=== PATIENT | female | born 1960 | race Caucasian/White ===

== ENCOUNTER 2020-10-08 14:10 | Emergency (ER) | payer MEDICARE, SELFPAY ==
[2020-10-08 14:11] VITALS: BP 155/96; PULSE 72; RESP 18; TEMP 36.4; O2SAT 99; BMI 38.0
--- NOTE | 2020-10-08 14:25 | DCINST.ED_ITS ---
ED Disposition - Plan for ED Patient: Instructions: Med Refill Prescriptions: Hydrochlorothiazide [Hctz] 12.5 mg PO DAILY #30 tab Prescription Printed Losartan Potassium 100 mg PO DAILY #30 tab Prescription Printed Amlodipine Besylate [Norvasc] 5 mg PO DAILY #30 tab Prescription Printed Referrals: [facility] Doctor,Out of [Primary Care Provider] - Susana Ford MD [STAFF PHYSICIAN] -
--- NOTE | 2020-10-08 14:31 | ED.VISSUMM ---
- ER Visit Summary Date of Service: 10/08/20 Chief Complaint: Ran out of medications History of Present Illness: The patient is a 60 F presenting stating that she ran out of her blood pressure medications 4 days ago. She states she is in the process of changing primary care physicians. She ran out of Norvasc, hydrochlorothiazide, and losartan. She states she ran out of her Lipitor approximately 5 months ago and does not want a refill. She denies chest pain or shortness of breath. Denies other complaints. Physical Examination: Vitals are stable. Blood pressure 155/96, patient is afebrile. Alert no acute distress. HEENT exam is unremarkable. Neck is supple. Lungs are clear and equal bilaterally. Heart is regular rate and rhythm. Extremities are unremarkable. Skin is warm and dry. No focal neurologic deficit. Remainder of exam is unremarkable. Emergency Department Course and Treatment: Patient is given prescription for Norvasc, hydrochlorothiazide, losartan. She states her daughter sees Dr. Ford and she will try to follow-up with her. Advised to return to ED if worsening complaints. Disposition: Discharge home Impression: Hypertension, medication refill This note was generated with adicate timeads dictation software. It may contain incorrect words, spelling, and punctuation that were not noted in review of the chart prior to signing ED Disposition - Plan for ED Patient: Instructions: Med Refill Prescriptions: Hydrochlorothiazide [Hctz] 12.5 mg PO DAILY #30 tab Prescription Printed Losartan Potassium 100 mg PO DAILY #30 tab Prescription Printed Amlodipine Besylate [Norvasc] 5 mg PO DAILY #30 tab Prescription Printed Referrals: Susana Ford MD [STAFF PHYSICIAN] - [facility] Doctor,Out of [Primary Care Provider] -
== END 2020-10-08 14:53 | disposition home or self-care (01) ==
LOC: ED 14:46
PROVIDERS: Emergency Provider Emergency Medicine
DX: Z76.0 Encounter for issue of repeat prescription (principal); I10 Essential (primary) hypertension; I25.2 Old myocardial infarction; I25.10 Atherosclerotic heart disease of native coronary artery without angina pectoris; E78.00 Pure hypercholesterolemia, unspecified; Z95.5 Presence of coronary angioplasty implant and graft; Z79.899 Other long term (current) drug therapy
CPT/HCPCS: 99282

== ENCOUNTER 2025-05-25 11:23 | Inpatient (IN) | payer MEDICARE, SELFPAY ==
[2025-05-25] VITALS (17 sets, daily range): BP systolic 112–186; BP diastolic 65–107; PULSE 59–129; RESP 16–26; TEMP 36.4–37.1; O2SAT 94–100; BMI 44.9; BMI 46.5
--- NOTE | 2025-05-25 11:56 | RAD_ITS ---
PROCEDURE: CHEST 1 VIEW (PORTABLE) 05/25/2025 REASON FOR EXAM: CAD TECHNIQUE: 2 frontal views of the chest. COMPARISON: None FINDINGS: Hardware: EKG leads overlie the chest Heart: The heart size is normal. Lungs: Lungs are underexpanded but there is no superimposed acute pulmonary process. Bones: The bones are unremarkable. Other: RAD/Chest 1 View (Portable) IMPRESSION: Underexpanded lungs without a superimposed acute pulmonary process Reading Location: [id number]
--- NOTE | 2025-05-25 11:56 | EKG12_ITS ---
Test Reason : NAUSEA Blood Pressure : */* mmHG Vent. Rate : 140 BPM Atrial Rate : 234 BPM P-R Int : 154 ms QRS Dur : 70 ms QT Int : 410 ms P-R-T Axes : 62 -24 44 degrees QTcB Int : 625 ms Critical Test Result: High HR , Ventricular tachycardia Poor data quality, interpretation may be adversely affected Undetermined rhythm Low voltage QRS Inferior infarct , age undetermined Anterolateral infarct , age undetermined Abnormal ECG Confirmed by WIN GOLDMAN, PAWEL ([id number]), senior editor STEPHANIE SANDOVAL ([id number]) on 05/26/2025 1:46:28 PM Referred By: Confirmed By: PAWEL WALDEN MD
--- NOTE | 2025-05-25 11:56 | CT_ITS ---
EXAM: CT Head Without Intravenous Contrast CLINICAL INDICATION: ALTERED LEVEL OF CONSCIOUSNESS TECHNIQUE: Axial computed tomography images of the head/brain without intravenous contrast. This CT exam was performed using one or more of the following dose reduction techniques: automated exposure control, adjustment of the mA and/or kV according to patient size, and/or use of iterative reconstruction technique. COMPARISON: No relevant prior studies available. FINDINGS: BRAIN AND EXTRA-AXIAL SPACES: The cerebral and cerebellar sulci are mildly prominent consistent with mild brain atrophy. No acute intracranial hemorrhage, midline shift or mass effect. If symptoms persist, further evaluation with MRI is recommended. Mild areas of decreased attenuation in the deep cerebral white matter are consistent with mild small vessel ischemic/degenerative changes. BONES/JOINTS: Unremarkable. No acute fracture. SOFT TISSUES: Unremarkable. SINUSES: Unremarkable as visualized. No acute sinusitis. MASTOID AIR CELLS: Unremarkable as visualized. No mastoid effusion. CT/Brain/Head without Contrast IMPRESSION: 1. No acute intracranial hemorrhage, midline shift or mass effect. If symptoms persist, further evaluation with MRI is recommended. 2. Mild small vessel ischemic/degenerative changes. Reading Location: [facility]
--- NOTE | 2025-05-25 11:58 | EX.ED.DYSGE1 ---
HPI <Ryne Briscoe MD - Last Filed: 05/26/25 08:30> History of Present Illness Chief Complaint: Alt LOC Narrative Narrative: History and physical limited secondary to patient mental condition/altered mental status. Patient presents via EMS with reported confusion that been increasing over the last few months. According to EMS, her family reports that the patient has been noncompliant with her medications and refusing to go to appointments with physicians. She has had declining health over the last few months. She was on the floor and found on the ground for the last 8 hours. PFSH <Ryne Briscoe MD - Last Filed: 05/26/25 08:30> [facility] Medical History no medical history Home Medications ?Medication ?Instructions ?Recorded ?Last Taken ?Type amlodipine 5 mg tablet 5 mg PO DAILY 10/08/20 Unknown History amlodipine 5 mg tablet 5 mg PO DAILY #30 tabs 10/08/20 Unknown Rx gabapentin 100 mg capsule 200 mg PO TID 10/08/20 Unknown History hydrochlorothiazide 12.5 mg capsule 12.5 mg PO DAILY 10/08/20 Unknown History hydrochlorothiazide 25 mg tablet 12.5 mg (1/2 x 25 mg) PO DAILY #30 10/08/20 Unknown Rx tabs hydrocodone 7.5 mg-acetaminophen 1 tab PO Q4H PRN PRN Pain Score 10/08/20 Unknown History 325 mg tablet 6-10 losartan 100 mg tablet 100 mg PO DAILY 10/08/20 Unknown History losartan 100 mg tablet 100 mg PO DAILY #30 tabs 10/08/20 Unknown Rx meloxicam 15 mg tablet 15 mg PO DAILY 10/08/20 Unknown History metoprolol succinate 25 mg 25 mg PO BID 10/08/20 Unknown History tablet,extended release 24 hr omeprazole 20 mg capsule,delayed 20 mg PO DAILY 10/08/20 Unknown History release tizanidine 2 mg capsule 2 mg PO QHS 10/08/20 10/07/20 History venlafaxine 75 mg capsule,extended 75 mg PO 10/08/20 Unknown History release 24 hr Allergy/AdvReac Type Severity Reaction Status Date / Time morphine Allergy Other Verified 05/25/25 11:24 Sulfa (Sulfonamide Allergy Rash Verified 05/25/25 11:24 Antibiotics) Family History no significant family his Surgical History no surgical history Social History Smoking Status: Current every day smoker tobacco type: cigarettes ROS <Ryne Briscoe MD - Last Filed: 05/26/25 08:30> ROS ED Review of Systems ROS Unobtainable: due to mental status EXAM <Ryne Briscoe MD - Last Filed: 05/26/25 08:30> Physical Exam Narrative Exam Narrative: Afebrile. Vital signs noted. Awake, alert, appears mildly confused, repetitive. Cardiovascular examination reveals a regular tachycardia. Lungs are clear to auscultation bilaterally. Abdomen is soft, nontender, obese, with positive bowel sounds. No guarding or rebound. Moving all extremities. Const Vital Signs: 05/25/25 11:24 05/25/25 11:27 05/25/25 12:27 Temperature 97.6 F L 97.6 F L 97.6 F L Temperature Source Oral Oral Oral Pulse Rate 129 H 129 H 125 H Respiratory Rate 26 H 26 H 26 H Blood Pressure 149/97 H 149/97 H 180/91 H Blood Pressure Mean 114 114 120 Pulse Ox 100 100 100 Oxygen Delivery Method Room Air Room Air Room Air 05/25/25 13:00 05/25/25 14:00 05/25/25 15:00 Temperature 97.6 F L 97.6 F L 98.7 F Temperature Source Oral Oral Oral Pulse Rate 121 H 126 H 123 H Respiratory Rate 26 H 25 H 20 H Blood Pressure 186/106 H 145/65 H 134/107 H Blood Pressure Mean 132 91 116 Pulse Ox 100 100 100 Oxygen Delivery Method Room Air Room Air Room Air 05/25/25 16:00 05/25/25 16:51 05/25/25 17:00 Temperature 98.7 F 98.7 F Temperature Source Oral Pulse Rate 129 H 129 H 59 L Respiratory Rate 16 20 H Blood Pressure 124/101 H 124/101 H 157/92 H Blood Pressure Mean 108 108 113 Pulse Ox 100 100 100 Oxygen Delivery Method Room Air Room Air 05/25/25 17:00 05/25/25 18:00 05/25/25 19:00 Temperature 98.7 F 97.8 F 98.3 F Temperature Source Oral Oral Oral Pulse Rate 116 H 118 H 114 H Respiratory Rate 22 H 24 H 23 H Blood Pressure 165/92 H 165/92 H 160/91 H Blood Pressure Mean 116 116 114 Pulse Ox 97 97 98 Oxygen Delivery Method Room Air Room Air Room Air <Dr. Eduard Porter DO - Last Filed: 05/25/25 19:29> Physical Exam Const Vital Signs: 05/25/25 11:24 05/25/25 11:27 05/25/25 12:27 Temperature 97.6 F L 97.6 F L 97.6 F L Temperature Source Oral Oral Oral Pulse Rate 129 H 129 H 125 H Respiratory Rate 26 H 26 H 26 H Blood Pressure 149/97 H 149/97 H 180/91 H Blood Pressure Mean 114 114 120 Pulse Ox 100 100 100 Oxygen Delivery Method Room Air Room Air Room Air 05/25/25 13:00 05/25/25 14:00 05/25/25 15:00 Temperature 97.6 F L 97.6 F L 98.7 F Temperature Source Oral Oral Oral Pulse Rate 121 H 126 H 123 H Respiratory Rate 26 H 25 H 20 H Blood Pressure 186/106 H 145/65 H 134/107 H Blood Pressure Mean 132 91 116 Pulse Ox 100 100 100 Oxygen Delivery Method Room Air Room Air Room Air 05/25/25 16:00 05/25/25 16:51 05/25/25 17:00 Temperature 98.7 F 98.7 F Temperature Source Oral Pulse Rate 129 H 129 H 59 L Respiratory Rate 16 20 H Blood Pressure 124/101 H 124/101 H 157/92 H Blood Pressure Mean 108 108 113 Pulse Ox 100 100 100 Oxygen Delivery Method Room Air Room Air 05/25/25 17:00 05/25/25 18:00 05/25/25 19:00 Temperature 98.7 F 97.8 F 98.3 F Temperature Source Oral Oral Oral Pulse Rate 116 H 118 H 114 H Respiratory Rate 22 H 24 H 23 H Blood Pressure 165/92 H 165/92 H 160/91 H Blood Pressure Mean 116 116 114 Pulse Ox 97 97 98 Oxygen Delivery Method Room Air Room Air Room Air MDM <Ryne Briscoe MD - Last Filed: 05/26/25 08:30> [facility] MDM Narrative Medical decision making narrative: Differential diagnosis includes but not limited to rhabdomyolysis versus acute intoxication versus dehydration versus other electrolyte imbalance. EKG was obtained and interpreted by myself independently as sinus tachycardia at 140 bpm with prolonged QTc of 625 ms, QRS normal duration is 70 ms. I reviewed her laboratory work and she has a leukocytosis of 22.2, compared to previous, it was elevated as well in the 20s. Hemoglobin normal at 13.2, hematocrit 39.4, platelet count 448. Potassium low at 2.8 which was replaced intravenously. Anion gap elevated at 21 with BUN of 9 and creatinine 0.80, glucose elevated at 123, lactic acid elevated 8.9. Ammonia level is also elevated at 133 so I suspect a hepatic encephalopathy. She was administered lactulose 40 orally. Albumin is slightly low at 2.8. AST slightly elevated at 71 with total bili 5.99. Total CK1 68 so I doubt rhabdomyolysis. Urine for drugs of abuse is positive for cannabinoids with ethyl alcohol less than 10.1. Urinalysis negative for infection with 0-5 WBCs. Chest x-ray interpreted by myself independently shows no pneumonia or consolidation, no pneumothorax. I reviewed the radiology report of the CT of the brain which shows no evidence of acute hemorrhage. Given her lactic acidosis, and that she is triggering sepsis, blood cultures obtained. She will be given additional IV fluids. Given her mental status change, lactic acidosis, and possible sepsis of unknown source, she was administered Zosyn and vancomycin. I discussed patient with Dr. Ryne Houser. He requested CT of the abdomen and pelvis with IV contrast and an INR which are currently pending. INR returned and is elevated at 3.6 with PTT of 36.7. In review of the radiology report of the CT of the abdomen and pelvis she has a cirrhotic liver as well as ascites. I rediscussed patient with Dr. Houser who feels patient would be better served in a tertiary care facility that has hepatology. I discussed patient with her daughter, Gisselle Salazar, at as a current contact information in the EMR is incorrect. She would like the patient transferred to [facility] As a first choice. She states that the patient did not drink excessive alcohol. Patient will be discussed with the transfer line. Patient is in stable condition. Patient signed out to oncoming physician, Dr. Waddell to seek acceptance and transfer patient. Dr. Porter: Patient was signed out to me by day physician. At the time of signout, he had already spoke to [facility]. He states that the wait time was greater than 3 days therefore he reached out to [facility]. He was waiting for [facility] callback. I spoke with Dr. Rodriguez from [facility]. Recommend patient to be transported to [facility]. Will reach out to [facility]. Patient started to pull out multiple IVs therefore was placed in soft wrist restraints. I spoke with [facility], Dr. Bolden. She accepted admission however she states that it will be greater than 6 hours before likely bed will open. Recommended admission to our hospital until they are able to verify transfer. Will reach out to our hospitalist again. Spoke with Dr. Buckley. He accepted admission to PCU. On chart review, patient has not had a repeat potassium. Will order this as well as a magnesium. History & Record Review Discussion w/independent historian: EMS personnel, Patient and Family (RN reports that daughter states that patient became noncompliant, and has been laying in bed for the past few months.) Lab Data Attestation: I reviewed the patient's lab results. Labs: Laboratory Results - last 24 hr 05/25/25 05/25/25 05/25/25 11:30 11:45 12:00 WBC 22.2 H RBC 4.28 Hgb 13.2 Hct 39.4 MCV 92.1 MCH 30.8 MCHC 33.5 RDW Std Deviation 57.1 H RDW Coeff of Micki 17.5 H Plt Count 448 MPV 9.2 Immature Gran % (Auto) 1.300 H Neut % (Auto) 87.6 H Lymph % (Auto) 5.3 L Mineral % (Auto) 5.4 Eos % (Auto) 0.0 Baso % (Auto) 0.4 Absolute Neuts (auto) 19.5 H Absolute Lymphs (auto) 1.18 Nucleated RBC % 0.1 PT INR APTT Sodium 140 Potassium 2.8 L Chloride 99 Carbon Dioxide 20.2 L Anion Gap 21 H BUN 9 Creatinine 0.80 Estim Creat Clear Calc 96.47 Est GFR (MDRD) Non-Af 83 BUN/Creatinine Ratio 10.9 Glucose 123 H Lactic Acid 8.9 H* Calcium 8.9 Magnesium Total Bilirubin 5.99 H AST 71 H ALT 26 Alkaline Phosphatase 92 Ammonia 133.0 H Total Creatine Kinase 168 Total Protein 6.7 Albumin 2.8 L Globulin 3.8 Albumin/Globulin Ratio 0.7 L Urine Color Urine Clarity Urine pH Ur Specific Glen Urine Protein Urine Glucose (UA) Urine Ketones Urine Occult Blood Urine Nitrite Urine Bilirubin Urine Urobilinogen Ur Leukocyte Esterase Urine RBC Urine WBC Ur Squamous Epith Cells Urine Bacteria Hyaline Casts Urine Mucus Urine Opiates Screen NEGATIVE U Buprenorphine Qual NEGATIVE Ur Oxycodone Screen NEGATIVE Urine Methadone Screen NEGATIVE Urine Fentanyl Screen NEGATIVE Ur Barbiturates Screen NEGATIVE Ur Phencyclidine Scrn NEGATIVE Ur Amphetamines Screen NEGATIVE U Benzodiazepines Scrn NEGATIVE Urine Cocaine Screen NEGATIVE U Cannabinoids Screen PRESUMPTIVE POSITIVE Ethyl Alcohol < 10.1 05/25/25 05/25/25 05/25/25 13:00 15:30 18:10 WBC RBC Hgb Hct MCV MCH MCHC RDW Std Deviation RDW Coeff of Micki Plt Count MPV Immature Gran % (Auto) Neut % (Auto) Lymph % (Auto) Mineral % (Auto) Eos % (Auto) Baso % (Auto) Absolute Neuts (auto) Absolute Lymphs (auto) Nucleated RBC % PT 36.7 H INR 3.6 APTT 50.7 H Sodium Potassium Chloride Carbon Dioxide Anion Gap BUN Creatinine Estim Creat Clear Calc Est GFR (MDRD) Non-Af BUN/Creatinine Ratio Glucose Lactic Acid 5.5 H* Calcium Magnesium Total Bilirubin AST ALT Alkaline Phosphatase Ammonia Total Creatine Kinase Total Protein Albumin Globulin Albumin/Globulin Ratio Urine Color Pilar Urine Clarity Sl. Cloudy Urine pH 6.0 Ur Specific Glen 1.020 Urine Protein 100 H Urine Glucose (UA) 50 H Urine Ketones 5 H Urine Occult Blood 25 H Urine Nitrite Positive H Urine Bilirubin 3 H Urine Urobilinogen 12 H Ur Leukocyte Esterase 25 H Urine RBC 0 SEEN Urine WBC 0-5 SEEN Ur Squamous Epith Cells 0-5 SEEN Urine Bacteria 1+ Hyaline Casts 0-5 SEEN Urine Mucus 1+ Urine Opiates Screen U Buprenorphine Qual Ur Oxycodone Screen Urine Methadone Screen Urine Fentanyl Screen Ur Barbiturates Screen Ur Phencyclidine Scrn Ur Amphetamines Screen U Benzodiazepines Scrn Urine Cocaine Screen U Cannabinoids Screen Ethyl Alcohol 05/25/25 19:53 WBC RBC Hgb Hct MCV MCH MCHC RDW Std Deviation RDW Coeff of Micki Plt Count MPV Immature Gran % (Auto) Neut % (Auto) Lymph % (Auto) Mineral % (Auto) Eos % (Auto) Baso % (Auto) Absolute Neuts (auto) Absolute Lymphs (auto) Nucleated RBC % PT INR APTT Sodium Potassium 2.9 L Chloride Carbon Dioxide Anion Gap BUN Creatinine Estim Creat Clear Calc Est GFR (MDRD) Non-Af BUN/Creatinine Ratio Glucose Lactic Acid Calcium Magnesium 1.3 L Total Bilirubin AST ALT Alkaline Phosphatase Ammonia Total Creatine Kinase Total Protein Albumin Globulin Albumin/Globulin Ratio Urine Color Urine Clarity Urine pH Ur Specific Glen Urine Protein Urine Glucose (UA) Urine Ketones Urine Occult Blood Urine Nitrite Urine Bilirubin Urine Urobilinogen Ur Leukocyte Esterase Urine RBC Urine WBC Ur Squamous Epith Cells Urine Bacteria Hyaline Casts Urine Mucus Urine Opiates Screen U Buprenorphine Qual Ur Oxycodone Screen Urine Methadone Screen Urine Fentanyl Screen Ur Barbiturates Screen Ur Phencyclidine Scrn Ur Amphetamines Screen U Benzodiazepines Scrn Urine Cocaine Screen U Cannabinoids Screen Ethyl Alcohol Radiography Chest X-Ray - ED: 1 View, Read by ED Physician, Read by Radiologist and No Infiltrates Diagnostic Testing: Clinical Impression(s) from Imaging Studies Brain CT 05/25/25 11:56 IMPRESSION: 1. No acute intracranial hemorrhage, midline shift or mass effect. If symptoms persist, further evaluation with MRI is recommended. 2. Mild small vessel ischemic/degenerative changes. Reading [facility] Chest X-Ray 05/25/25 11:56 IMPRESSION: Underexpanded lungs without a superimposed acute pulmonary process Reading Location: [id number] Pelvis X-Ray 05/25/25 12:01 IMPRESSION: Age consistent degenerative changes, no acute findings Reading Location: [id number] Abdomen/Pelvis CT 05/25/25 15:11 IMPRESSION: Cirrhotic liver morphology. Moderate volume ascites. Colonic wall thickening which may be due to portal hypertension or colitis. Indeterminate left adrenal nodule. Further characterization with nonemergent adrenal protocol CT is recommended. Reading Location: [id number] <Dr. Eduard Porter, DO - Last Filed: 05/25/25 19:29> [facility] MDM Narrative Medical decision making narrative: Differential diagnosis includes but not limited to rhabdomyolysis versus acute intoxication versus dehydration versus other electrolyte imbalance. EKG was obtained and interpreted by myself independently as sinus tachycardia at 140 bpm with prolonged QTc of 625 ms, QRS normal duration is 70 ms. I reviewed her laboratory work and she has a leukocytosis of 22.2, compared to previous, it was elevated as well in the 20s. Hemoglobin normal at 13.2, hematocrit 39.4, platelet count 448. Potassium low at 2.8 which was replaced intravenously. Anion gap elevated at 21 with BUN of 9 and creatinine 0.80, glucose elevated at 123, lactic acid elevated 8.9. Ammonia level is also elevated at 133 so I suspect a hepatic encephalopathy. She was administered lactulose 40 orally. Albumin is slightly low at 2.8. AST slightly elevated at 71 with total bili 5.99. Total CK1 68 so I doubt rhabdomyolysis. Urine for drugs of abuse is positive for cannabinoids with ethyl alcohol less than 10.1. Urinalysis negative for infection with 0-5 WBCs. Chest x-ray interpreted by myself independently shows no pneumonia or consolidation, no pneumothorax. I reviewed the radiology report of the CT of the brain which shows no evidence of acute hemorrhage. Given her lactic acidosis, and that she is triggering sepsis, blood cultures obtained. She will be given additional IV fluids. Given her mental status change, lactic acidosis, and possible sepsis of unknown source, she was administered Zosyn and vancomycin. I discussed patient with Dr. Ryne Houser. He requested CT of the abdomen and pelvis with IV contrast and an INR which are currently pending. INR returned and is elevated at 3.6 with PTT of 36.7. In review of the radiology report of the CT of the abdomen and pelvis she has a cirrhotic liver as well as ascites. I rediscussed patient with Dr. Houser who feels patient would be better served in a tertiary care facility that has hepatology. I discussed patient with her daughter, Gisselle Salazar, at as a current contact information in the EMR is incorrect. She would like the patient transferred to [facility] As a first choice. She states that the patient did not drink excessive alcohol. Patient will be discussed with the transfer line. Patient is in stable condition. Dr. Porter: Patient was signed out to me by day physician. At the time of signout, he had already spoke to [facility]. He states that the wait time was greater than 3 days therefore he reached out to [facility]. He was waiting for [facility] callback. I spoke with Dr. Rodriguez from [facility]. [facility] Will reach out to [facility]. Patient started to pull out multiple IVs therefore was placed in soft wrist restraints. I spoke with [facility], Dr. Bolden. She accepted admission however she states that it will be greater than 6 hours before likely bed will open. Recommended admission to our hospital until they are able to verify transfer. Will reach out to our hospitalist again. Spoke with Dr. Buckley. He accepted admission to PCU. On chart review, patient has not had a repeat potassium. Will order this as well as a magnesium. Lab Data Labs: Laboratory Results - last 24 hr 05/25/25 05/25/25 05/25/25 11:30 11:45 12:00 WBC 22.2 H RBC 4.28 Hgb 13.2 Hct 39.4 MCV 92.1 MCH 30.8 MCHC 33.5 RDW Std Deviation 57.1 H RDW Coeff of Micki 17.5 H Plt Count 448 MPV 9.2 Immature Gran % (Auto) 1.300 H Neut % (Auto) 87.6 H Lymph % (Auto) 5.3 L Mineral % (Auto) 5.4 Eos % (Auto) 0.0 Baso % (Auto) 0.4 Absolute Neuts (auto) 19.5 H Absolute Lymphs (auto) 1.18 Nucleated RBC % 0.1 PT INR APTT Sodium 140 Potassium 2.8 L Chloride 99 Carbon Dioxide 20.2 L Anion Gap 21 H BUN 9 Creatinine 0.80 Estim Creat Clear Calc 96.47 Est GFR (MDRD) Non-Af 83 BUN/Creatinine Ratio 10.9 Glucose 123 H Lactic Acid 8.9 H* Calcium 8.9 Magnesium Total Bilirubin 5.99 H AST 71 H ALT 26 Alkaline Phosphatase 92 Ammonia 133.0 H Total Creatine Kinase 168 Total Protein 6.7 Albumin 2.8 L Globulin 3.8 Albumin/Globulin Ratio 0.7 L Urine Color Urine Clarity Urine pH Ur Specific Glen Urine Protein Urine Glucose (UA) Urine Ketones Urine Occult Blood Urine Nitrite Urine Bilirubin Urine Urobilinogen Ur Leukocyte Esterase Urine RBC Urine WBC Ur Squamous Epith Cells Urine Bacteria Hyaline Casts Urine Mucus Urine Opiates Screen NEGATIVE U Buprenorphine Qual NEGATIVE Ur Oxycodone Screen NEGATIVE Urine Methadone Screen NEGATIVE Urine Fentanyl Screen NEGATIVE Ur Barbiturates Screen NEGATIVE Ur Phencyclidine Scrn NEGATIVE Ur Amphetamines Screen NEGATIVE U Benzodiazepines Scrn NEGATIVE Urine Cocaine Screen NEGATIVE U Cannabinoids Screen PRESUMPTIVE POSITIVE Ethyl Alcohol < 10.1 05/25/25 05/25/25 05/25/25 13:00 15:30 18:10 WBC RBC Hgb Hct MCV MCH MCHC RDW Std Deviation RDW Coeff of Micki Plt Count MPV Immature Gran % (Auto) Neut % (Auto) Lymph % (Auto) Mineral % (Auto) Eos % (Auto) Baso % (Auto) Absolute Neuts (auto) Absolute Lymphs (auto) Nucleated RBC % PT 36.7 H INR 3.6 APTT 50.7 H Sodium Potassium Chloride Carbon Dioxide Anion Gap BUN Creatinine Estim Creat Clear Calc Est GFR (MDRD) Non-Af BUN/Creatinine Ratio Glucose Lactic Acid 5.5 H* Calcium Magnesium Total Bilirubin AST ALT Alkaline Phosphatase Ammonia Total Creatine Kinase Total Protein Albumin Globulin Albumin/Globulin Ratio Urine Color Pilar Urine Clarity Sl. Cloudy Urine pH 6.0 Ur Specific Glen 1.020 Urine Protein 100 H Urine Glucose (UA) 50 H Urine Ketones 5 H Urine Occult Blood 25 H Urine Nitrite Positive H Urine Bilirubin 3 H Urine Urobilinogen 12 H Ur Leukocyte Esterase 25 H Urine RBC 0 SEEN Urine WBC 0-5 SEEN Ur Squamous Epith Cells 0-5 SEEN Urine Bacteria 1+ Hyaline Casts 0-5 SEEN Urine Mucus 1+ Urine Opiates Screen U Buprenorphine Qual Ur Oxycodone Screen Urine Methadone Screen Urine Fentanyl Screen Ur Barbiturates Screen Ur Phencyclidine Scrn Ur Amphetamines Screen U Benzodiazepines Scrn Urine Cocaine Screen U Cannabinoids Screen Ethyl Alcohol 05/25/25 19:53 WBC RBC Hgb Hct MCV MCH MCHC RDW Std Deviation RDW Coeff of Micki Plt Count MPV Immature Gran % (Auto) Neut % (Auto) Lymph % (Auto) Mineral % (Auto) Eos % (Auto) Baso % (Auto) Absolute Neuts (auto) Absolute Lymphs (auto) Nucleated RBC % PT INR APTT Sodium Potassium 2.9 L Chloride Carbon Dioxide Anion Gap BUN Creatinine Estim Creat Clear Calc Est GFR (MDRD) Non-Af BUN/Creatinine Ratio Glucose Lactic Acid Calcium Magnesium 1.3 L Total Bilirubin AST ALT Alkaline Phosphatase Ammonia Total Creatine Kinase Total Protein Albumin Globulin Albumin/Globulin Ratio Urine Color Urine Clarity Urine pH Ur Specific Glen Urine Protein Urine Glucose (UA) Urine Ketones Urine Occult Blood Urine Nitrite Urine Bilirubin Urine Urobilinogen Ur Leukocyte Esterase Urine RBC Urine WBC Ur Squamous Epith Cells Urine Bacteria Hyaline Casts Urine Mucus Urine Opiates Screen U Buprenorphine Qual Ur Oxycodone Screen Urine Methadone Screen Urine Fentanyl Screen Ur Barbiturates Screen Ur Phencyclidine Scrn Ur Amphetamines Screen U Benzodiazepines Scrn Urine Cocaine Screen U Cannabinoids Screen Ethyl Alcohol Radiography Diagnostic Testing: Clinical Impression(s) from Imaging Studies Brain CT 05/25/25 11:56 IMPRESSION: 1. No acute intracranial hemorrhage, midline shift or mass effect. If symptoms persist, further evaluation with MRI is recommended. 2. Mild small vessel ischemic/degenerative changes. Reading Location: [facility] Chest X-Ray 05/25/25 11:56 IMPRESSION: Underexpanded lungs without a superimposed acute pulmonary process Reading Location: [facility] Pelvis X-Ray 05/25/25 12:01 IMPRESSION: Age consistent degenerative changes, no acute findings Reading Location: [facility] Abdomen/Pelvis CT 05/25/25 15:11 IMPRESSION: Cirrhotic liver morphology. Moderate volume ascites. Colonic wall thickening which may be due to portal hypertension or colitis. Indeterminate left adrenal nodule. Further characterization with nonemergent adrenal protocol CT is recommended. Reading Location: [id number] Discharge Plan Dx/Rx/DC Orders Clinical Impression: Altered level of consciousness, Hepatic encephalopathy, Lactic acidosis, Hypokalemia, Liver cirrhosis, Elevated INR, Abdominal ascites Disposition Disposition: Acute Care [facility] Discharge Date/Time: 05/25/25 22:19
--- NOTE | 2025-05-25 12:01 | RAD_ITS ---
PROCEDURE: PELVIS 1 OR 2 VIEWS 05/25/2025 REASON FOR EXAM: TRAUMA TECHNIQUE: PELVIS 1 OR 2 VIEWS COMPARISON: None FINDINGS: Hardware: Catheter noted within the bladder. Bones: Degenerative bony changes with age consistent hip and SI joint arthrosis, no aggressive osseous lesion. Joints: Mild degenerative changes. soft tissues: Other: RAD/Pelvis 1 or 2 Views IMPRESSION: Age consistent degenerative changes, no acute findings Reading Location: [id number]
[2025-05-25] MEDS: 0.9% Normal Saline (1000mL) 1,000 ML 1000 ML IV (12:17)
[2025-05-25 12:43] LABS: Hematocrit 39.4 % (37-47); Hemoglobin 13.2 g/dL (12.0-15.0); Immature Granulocytes Count 0.280 X10^3/uL (0.0-0.0); Mean Corp Hgb Conc 33.5 g/dL (32-36); Mean Corpuscular Volume 92.1 fL (81-99); Mean Platelet Vol. 9.2 fl (6.2-12.0); NRBC Flagged by Analyzer 0.1 % (0-5); Platelet Count 448 K/mm3 (150-450); RBC Distribution Width CV 17.5 % (11.6-14.6); RBC Distribution Width SD 57.1 fl (35.1-43.9); Red Blood Count 4.28 M/mm3 (4.2-5.4); White Blood Count 22.2 K/mm3 (4.4-11.0)
[2025-05-25 13:17] LABS: Red Blood Cells-Urine 0 SEEN /hpf (0-5)
[2025-05-25 13:27] LABS: Color, Urine Amber (Yellow); Glucose, Dipstick 50 mg/dl (Normal); Ketone-Dipstick 5 mg/dl (Negative); Leukocyte Esterase-Dipstick 25 /ul (Negative); Nitrite-Dipstick Positive (Negative); Occult Blood-Urine 25 /ul (Negative); Protein-Dipstick 100 mg/dl (Negative); Specific Gravity, Urine 1.020 (1.002-1.030)
[2025-05-25 13:29] LABS: Urine Bilirubin Dipstick 3 mg/dL (Negative)
[2025-05-25 13:35] LABS: Mucous, Urine 1+ /hpf (<or=2+); Squamous Epithelial Cells - UA 0-5 SEEN /hpf (5-10)
[2025-05-25 13:41] LABS: Barbiturate Urine NEGATIVE (< 200 ng/mL); Benzodiazepine Urine NEGATIVE (< 200 ng/mL); PCP Urine NEGATIVE (< 25 ng/mL); THC Urine PRESUMPTIVE POSITIVE (< 50 ng/mL)
[2025-05-25 13:54] LABS: Alcohol, Blood (Medical)-Serum < 10.1 mg/dL (<=10.0); Ammonia 133.0 umol/L (11-51)
[2025-05-25 14:20] LABS: CPK Total, Creatine Kinase 168 U/L (24-195)
[2025-05-25 14:21] LABS: AST(SGOT) 71 U/L (<=31); Alanine Aminotransfer ALT/SGPT 26 U/L (<=34); Albumin, Serum 2.8 g/dL (3.4-4.8); Alkaline Phosphatase 92 U/L (35-104); Anion Gap 21 (5-15); BUN 9 mg/dL (4-19); BUN/Creat Ratio 10.9 RATIO (10-20); Calcium,Total 8.9 mg/dL (7.6-11.0); Carbon Dioxide 20.2 mmol/L (21.0-32.0); Chloride 99 mmol/L (98-108); Estimated Creatinine Clearance 96.47 ml/min (50-250); Globulin 3.8 g/dL (2.2-4.2); Glucose 123 mg/dL (70-99); Potassium 2.8 mmol/L (3.3-5.1)
[2025-05-25] MEDS: 0.9% Normal Saline (1000mL) 1,000 ML 999 ML IV ×4 (14:23→20:03)
[2025-05-25] MEDS: Piperacil/Tazobactam 4.5 GM in 0.9% Normal Saline (100mL MB+) 100 ML IV (14:38)
--- NOTE | 2025-05-25 15:11 | CT_ITS ---
PROCEDURE: ABDOMEN/PELVIS W IV CONT ONLY 05/25/2025 REASON FOR EXAM: SEPSIS TECHNIQUE: ABDOMEN/PELVIS W IV CONT ONLY Coronal and Sagittal reconstruction series were provided. CONTRAST: Isovue 370 VOLUME: 97 mL One or more dose reduction techniques were used (e.g., Automated exposure control, adjustment of the mA and/or kV according to patient size, use of iterative reconstruction technique. RADIATION DOSE SUMMARY: CTDlvol: 9.11+ 22.45 mGy DLP: 1437.91 mGycm COMPARISON: None. FINDINGS: Anasarca is present. Severe degenerative changes of the spine. Scoliosis. Hlvmpiub-fh-sszmkh atherosclerosis. No suspicious lymphadenopathy. Nodular hepatic surface contour and decreased size suspicious for cirrhosis. Moderate volume ascites. Surgically absent gallbladder. The pancreas, spleen are unremarkable. Left adrenal 2.0 cm nodule with indeterminate attenuation. Right kidney cyst. Additional subcentimeter bilateral renal hypodense lesions that are too small to characterize a Naik catheter is present. Surgically absent uterus. Normal caliber large and small bowel. Colonic wall thickening. CT/Abdomen/Pelvis W IV Cont ONLY IMPRESSION: Cirrhotic liver morphology. Moderate volume ascites. Colonic wall thickening which may be due to portal hypertension or colitis. Indeterminate left adrenal nodule. Further characterization with nonemergent a drenal protocol CT is recommended. Reading Location: [place] [id number]
[2025-05-25] MEDS: KCL 40mEq in 0.9% NS 40 MEQ/1,000 ML IV.SOLN 250 MEQ IV ×2 (15:37→20:23)
[2025-05-25] MEDS: Vancomycin HCl 2,000 MG in 0.9% Normal Saline (500mL Bag) 500 ML 250 MG IV (16:09)
[2025-05-25 16:17] LABS: Prothrombin Time (Protime)PT. 36.7 SECONDS (11.7-14.9)
--- NOTE | 2025-05-25 17:17 | PCA ---
5651 @ FAXED FACESHEET TO [facility]
[2025-05-25 17:39] LABS: Reflex Lactate? Y
--- NOTE | 2025-05-25 17:47 | ED.RN ---
PT CONTINUOUSLY RIPPING IVS OUT AND PULLING MEDICAL MONITORING DEVICES. PT REDIRECTED NO LESS THAN 10 TIMES AND CONTINUES TO PULL AND REMOVE MONITORING EQUIPMENT. ORDER OBTAINED FROM ED DOC TO PLACE MEDICAL SOFT RESTRAINTS.
[2025-05-25 19:08] LABS: Partial Thromboplast Time 50.7 Seconds (24.1-36.2)
--- NOTE | 2025-05-25 19:22 | PCM.HP.STD ---
HPI - General General Date of Admission: 05/25/25 Date of Service: 05/25/25 Chief Complaint: AMS and Found Down. HPI Narrative YANET SALAZAR, is a 65 F with a past medical history of essential hypertension; on amlodipine, losartan, metoprolol and chlorothiazide, morbid obesity, BMI of 44.9 this admission, chronic tobacco abuse, history of cirrhosis with ascites; complicated by poor compliance with medications and appointments with physicians, neuropathy; on gabapentin 3 times daily, depression; on venlafaxine, GERD; on omeprazole and OA; on meloxicam, tizanidine nightly plus as needed hydrocodone-acetaminophen every 4 hours as needed who presents to [facility] ER after she was found down at home with altered mental status. Ms. Salazar is not a reliable historian at this time deformations gathered from chart, medical staff and computer. According to the records she has had increasing confusion and declining health over the past few months. Her family activated EMS today after she was found down on the bathroom floor likely for ~8 hours. EMS noted patient was alert but confused with blood glucose of 159 mg/dL noted at that time. In the ER she was noted to have Severe Leukocytosis of 22.2K with Left-shift of 1.3% with Lactic Acidosis of 8.9 mmol/L present on admission concerning for Sepsis complicated by additional laboratory evidence of hyperbilirubinemia of 5.99 mg/dL with Hyperammonemia of 133 ?mol/L consistent with Hepatic Encephalopathy compounded by elevated INR of 3.6 present on admission consistent with advanced liver disease with poor synthetic function causing auto-anticoagulation with Hypokalemia of 2.8 mmol/L present on admission with UDS positive for cannabis with a corresponding CT scan of the abdomen and pelvis that revealed cirrhotic liver morphology with moderate volume ascites and colonic wall thickening which may be due to portal hypertension or Colitis in addition to an indeterminate left adrenal nodule with further characterization with nonemergent adrenal protocol CT recommended. Patient also underwent head CT without contrast that revealed no acute intracranial hemorrhage, midline shift or mass effect with MRI recommended if symptoms persist in addition to small vessel ischemic/degenerative changes. She was then immediately started on empiric IV piperacillin-tazobactam, IV vancomycin and oral lactulose x 1 with IV KCl and 2L NS fluid resuscitation. The original ER physician caring for the patient contacted a tertiary care center who has accepted the patient for transfer but with no bed availability at this time the hospitalist service was contacted to care for this patient until such time transfer can be effected. She was then admitted to the ICU for ongoing care under the sepsis protocol for a stay that is expected to extend beyond 2 midnights. ` PFSH Medical History no medical history Home Medications ?Medication ?Instructions ?Recorded ?Last Taken ?Type amlodipine 5 mg tablet 5 mg PO DAILY 10/08/20 Unknown History amlodipine 5 mg tablet 5 mg PO DAILY #30 tabs 10/08/20 Unknown Rx gabapentin 100 mg capsule 200 mg PO TID 10/08/20 Unknown History hydrochlorothiazide 12.5 mg capsule 12.5 mg PO DAILY 10/08/20 Unknown History hydrochlorothiazide 25 mg tablet 12.5 mg (1/2 x 25 mg) PO DAILY #30 10/08/20 Unknown Rx tabs hydrocodone 7.5 mg-acetaminophen 1 tab PO Q4H PRN PRN Pain Score 10/08/20 Unknown History 325 mg tablet 6-10 losartan 100 mg tablet 100 mg PO DAILY 10/08/20 Unknown History losartan 100 mg tablet 100 mg PO DAILY #30 tabs 10/08/20 Unknown Rx meloxicam 15 mg tablet 15 mg PO DAILY 10/08/20 Unknown History metoprolol succinate 25 mg 25 mg PO BID 10/08/20 Unknown History tablet,extended release 24 hr omeprazole 20 mg capsule,delayed 20 mg PO DAILY 10/08/20 Unknown History release tizanidine 2 mg capsule 2 mg PO QHS 10/08/20 10/07/20 History venlafaxine 75 mg capsule,extended 75 mg PO 10/08/20 Unknown History release 24 hr Allergy/AdvReac Type Severity Reaction Status Date / Time morphine Allergy Other Verified 05/25/25 11:24 Sulfa (Sulfonamide Allergy Rash Verified 05/25/25 11:24 Antibiotics) Family History no significant family his Surgical History no surgical history Social History Smoking Status: Current every day smoker tobacco type: cigarettes ROS ROS Narrative Full review of systems was not possible due to patient's acute illness and severe hepatic encephalopathy. Vital Signs Vital Signs Vital Signs: 05/25/25 11:24 05/25/25 11:27 05/25/25 12:27 Temperature 97.6 F L 97.6 F L 97.6 F L Temperature Source Oral Oral Oral Pulse Rate 129 H 129 H 125 H Respiratory Rate 26 H 26 H 26 H Blood Pressure 149/97 H 149/97 H 180/91 H Blood Pressure Mean 114 114 120 Pulse Ox 100 100 100 Oxygen Delivery Method Room Air Room Air Room Air 05/25/25 13:00 05/25/25 14:00 05/25/25 15:00 Temperature 97.6 F L 97.6 F L 98.7 F Temperature Source Oral Oral Oral Pulse Rate 121 H 126 H 123 H Respiratory Rate 26 H 25 H 20 H Blood Pressure 186/106 H 145/65 H 134/107 H Blood Pressure Mean 132 91 116 Pulse Ox 100 100 100 Oxygen Delivery Method Room Air Room Air Room Air 05/25/25 16:00 05/25/25 16:51 05/25/25 17:00 Temperature 98.7 F 98.7 F Temperature Source Oral Pulse Rate 129 H 129 H 59 L Respiratory Rate 16 20 H Blood Pressure 124/101 H 124/101 H 157/92 H Blood Pressure Mean 108 108 113 Pulse Ox 100 100 100 Oxygen Delivery Method Room Air Room Air 05/25/25 17:00 05/25/25 18:00 05/25/25 19:00 Temperature 98.7 F 97.8 F 98.3 F Temperature Source Oral Oral Oral Pulse Rate 116 H 118 H 114 H Respiratory Rate 22 H 24 H 23 H Blood Pressure 165/92 H 165/92 H 160/91 H Blood Pressure Mean 116 116 114 Pulse Ox 97 97 98 Oxygen Delivery Method Room Air Room Air Room Air Weight Weight: 278 lb 0.046 oz Body Mass Index (BMI) 44.9 Results Medical Records Data Attestation: I reviewed the patient's medical records Lab / Micro Data Attestation: I reviewed the patient's lab results. 05/25/25 11:30 05/25/25 19:53 Labs: Laboratory Results - last 24 hr 05/25/25 11:30: WBC 22.2 H, RBC 4.28, Hgb 13.2, Hct 39.4, MCV 92.1, MCH 30.8, MCHC 33.5, RDW Std Deviation 57.1 H, RDW Coeff of Micki 17.5 H, Plt Count 448, MPV 9.2, Immature Gran % (Auto) 1.300 H, Neut % (Auto) 87.6 H, Lymph % (Auto) 5.3 L, [place] % (Auto) 5.4, Eos % (Auto) 0.0, Baso % (Auto) 0.4, Absolute Neuts (auto) 19.5 H, Absolute Lymphs (auto) 1.18, Nucleated RBC % 0.1 05/25/25 11:45: Sodium 140, Potassium 2.8 L, Chloride 99, Carbon Dioxide 20.2 L, Anion Gap 21 H, BUN 9, Creatinine 0.80, Estim Creat Clear Calc 96.47, Est GFR (MDRD) Non-Af 83, BUN/Creatinine Ratio 10.9, Glucose 123 H, Lactic Acid 8.9 H*, Calcium 8.9, Total Bilirubin 5.99 H, AST 71 H, ALT 26, Alkaline Phosphatase 92, Ammonia 133.0 H, Total Creatine Kinase 168, Total Protein 6.7, Albumin 2.8 L, Globulin 3.8, Albumin/Globulin Ratio 0.7 L, Ethyl Alcohol < 10.1 05/25/25 12:00: Urine Opiates Screen NEGATIVE, U Buprenorphine Qual NEGATIVE, Ur Oxycodone Screen NEGATIVE, Urine Methadone Screen NEGATIVE, Urine Fentanyl Screen NEGATIVE, Ur Barbiturates Screen NEGATIVE, Ur Phencyclidine Scrn NEGATIVE, Ur Amphetamines Screen NEGATIVE, U Benzodiazepines Scrn NEGATIVE, Urine Cocaine Screen NEGATIVE, U Cannabinoids Screen PRESUMPTIVE POSITIVE 05/25/25 13:00: Urine Color Pilar, Urine Clarity Sl. Cloudy, Urine pH 6.0, Ur Specific [place] 1.020, Urine Protein 100 H, Urine Glucose (UA) 50 H, Urine Ketones 5 H, Urine Occult Blood 25 H, Urine Nitrite Positive H, Urine Bilirubin 3 H, Urine Urobilinogen 12 H, Ur Leukocyte Esterase 25 H, Urine RBC 0 SEEN, Urine WBC 0-5 SEEN, Ur Squamous Epith Cells 0-5 SEEN, Urine Bacteria 1+, Hyaline Casts 0-5 SEEN, Urine Mucus 1+ 05/25/25 15:30: PT 36.7 H, INR 3.6, APTT 50.7 H 05/25/25 18:10: Lactic Acid 5.5 H* Imaging Radiology Impression Brain CT 05/25/25 11:56 IMPRESSION: 1. No acute intracranial hemorrhage, midline shift or mass effect. If symptoms persist, further evaluation with MRI is recommended. 2. Mild small vessel ischemic/degenerative changes. Reading Location: [facility] Chest X-Ray 05/25/25 11:56 IMPRESSION: Underexpanded lungs without a superimposed acute pulmonary process Reading Location: [facility] Pelvis X-Ray 05/25/25 12:01 IMPRESSION: Age consistent degenerative changes, no acute findings Reading Location: [facility] Abdomen/Pelvis CT 05/25/25 15:11 IMPRESSION: Cirrhotic liver morphology. Moderate volume ascites. Colonic wall thickening which may be due to portal hypertension or colitis. Indeterminate left adrenal nodule. Further characterization with nonemergent adrenal protocol CT is recommended. Reading Location: [id number] Assessment & Plan Assessment/Plan (1) Sepsis: QUALIFIERS: Sepsis acute organ dysfunction status: with acute organ dysfunction Sepsis type: sepsis due to unspecified organism Severe sepsis acute organ dysfunction type: encephalopathy Severe sepsis shock status: without septic shock Qualified Code(s): A41.9 - Sepsis, unspecified organism; R65.20 - Severe sepsis without septic shock; G93.41 - Metabolic encephalopathy (2) Leukocytosis: QUALIFIERS: Leukocytosis type: bandemia Qualified Code(s): D72.825 - Bandemia (3) Lactic acidosis: (4) Colitis: (5) Cirrhosis of liver with ascites: QUALIFIERS: Hepatic cirrhosis type: unspecified hepatic cirrhosis Qualified Code(s): K74.60 - Unspecified cirrhosis of liver; R18.8 - Other ascites (6) Hyperbilirubinemia: (7) Hyperammonemia: (8) Hepatic encephalopathy: (9) Medical non-compliance: (10) Elevated INR: (11) Hypokalemia: (12) Hypomagnesemia: (13) Cannabis abuse: (14) Morbid obesity with BMI of 40.0-44.9, adult: (15) Tobacco abuse: PLAN: Plan 1. Severe Leukocytosis of 22.2K with Left-shift of 1.3% with Lactic Acidosis of 8.9 mmol/L present on admission concerning for Sepsis with a corresponding CT scan of the abdomen and pelvis that revealed cirrhotic liver morphology with moderate volume ascites and colonic wall thickening which may be due to portal hypertension or Colitis - Admit to ICU for treatment under the sepsis protocol. Continue empiric IV vancomycin and IV piperacillin-tazobactam and await culture and sensitivity data. Transfer to tertiary care center when bed becomes available. Finally, we will consult spinner open end on-call to see this patient on rounds in the a.m. for further recommendations with help appreciated in advance. 2. Hyperbilirubinemia of 5.99 mg/dL with Hyperammonemia of 133 ?mol/L consistent with Hepatic Encephalopathy with patient found down ~8 hours on bathroom floor at home with significant confusion in the setting of a known history of cirrhosis with ascites; complicated by Medical Noncompliance with medications and appointments with physicians further complicating #1 - Maintain lactulose begun in ER and serialize ammonia as well as CMP to follow trend. Check CPK to evaluate for possible myotoxicity. Finally, we will limit P[employer] WELDER-active medications in an effort to allow sensorium to clear. 3. Elevated INR of 3.6 present on admission consistent with advanced liver disease with poor synthetic function causing auto-anticoagulation compounding #1 & #2 - Give oral vitamin K once and check INR daily to follow trend. 4. Hypokalemia of 2.8 mmol/L and Hypomagnesemia of 1.3 mg/dL both present on admission adding to the medical complexity of #1 - #3 - Patient treated with IV KCl in ER with PO KCl also given with recheck pending to confirm improvement. Give magnesium sulfate 2g IV once and then recheck level to confirm repletion. 5. UDS positive for cannabis exacerbating #1 - #4 - Cannabis Cessation will be strongly encouraged when patient's sensorium clears. 6. Morbid (class III) obesity; with BMI of 44.9 this admission adding to the burden of disease outlined from #1 - #5 - Weight loss will be recommended. Check TSH. This complicates her case may Hampe recovery. 7. Chronic Tobacco Abuse - Tobacco Cessation will be strongly encouraged once sensorium clears. Please nicotine patch to control cravings. 8. Essential hypertension; on amlodipine, losartan, metoprolol and chlorothiazide - Hold scheduled antihypertensives in light of #1. 9. Neuropathy; on gabapentin 3 times daily - Restart gabapentin when she can reliably tolerate oral intake. 10. Depression; on venlafaxine - Hold this agent until sensorium clears. 11. GERD; on omeprazole - Maintain PPI IV. 12. OA; on meloxicam, tizanidine nightly plus as needed hydrocodone-acetaminophen every 4 hours as needed - 13. DVT prophylaxis - SCD's only with patient already auto-anticoagulated with elevated INR of 3.6 present on admission as outlined in #3. Total time: Approximately (but not less than) 75 minutes. Sepsis Attestation Sepsis Alert: Yes Sepsis Attestation: Agree w/Sepsis Date exam was performed: 05/25/25 Time exam was performed: 20:00 Possible Source of Sepsis: GI tract/intra-abdominal Sepsis Organ Dysfunction Criteria Present: INR > 1.5 or aPTT > 60 sec, Lactic Acid > 2 mmol/L and New/Unexplained change in mental status Supportive Findings: In the ER she was noted to have Severe Leukocytosis of 22.2K with Left-shift of 1.3% with Lactic Acidosis of 8.9 mmol/L present on admission concerning for Sepsis complicated by additional laboratory evidence of hyperbilirubinemia of 5.99 mg/dL with Hyperammonemia of 133 ?mol/L consistent with Hepatic Encephalopathy compounded by elevated INR of 3.6 present on admission consistent with advanced liver disease with poor synthetic function causing auto-anticoagulation with Hypokalemia of 2.8 mmol/L present on admission with UDS positive for cannabis with a corresponding CT scan of the abdomen and pelvis that revealed cirrhotic liver morphology with moderate volume ascites and colonic wall thickening which may be due to portal hypertension or Colitis. Fluid Resuscitation Fluid resuscitation indicated?: Yes Fluid Resuscitation ordered: 30 ml/kg fluid bolus ordered Amount of fluid ordered: 3 Sepsis Note Date exam was performed: 05/25/25 Time exam was performed: 23:59 Sepsis Attestation: Sepsis re-evaluation was performed Response to fluids: Fluid responsive hypotension Charges/Coding Visit Charges Inpatient E&M: 61582 Init Hosp L3
--- NOTE | 2025-05-25 19:30 | NURSING ---
update called to Gisselle Salazar
[2025-05-25 20:19] LABS: Magnesium 1.3 mg/dL (1.5-2.2); Potassium 2.9 mmol/L (3.3-5.1)
[2025-05-25] MEDS: Piperacil/Tazobactam 3.375 GM in 0.9% Normal Saline (50mL MB+) 50 ML IV (22:15)
[2025-05-25] MEDS: Pantoprazole Sodium 40 MG in 0.9% Normal Saline (100mL MB+) 100 ML 330 MG IV (22:15)
[2025-05-25] MEDS: Potassium Chloride Oral Tablet 20 MEQ 60 MEQ PO (22:23)
[2025-05-25 22:33] LABS: Allen Test Positive; Base Excess -2 mmol/L (-2 to +2); PO2 72 mmHG (75-100); SITE L Radial; SO2 96 % (95-99)
--- NOTE | 2025-05-25 23:27 | PCM.RX.CS ---
Consult Antibiotic Management Pharmacy has been consulted to manage selected antibiotic: Vancomycin Type of Intervention Type of Consult: New start Labs Labs: Sodium 140 mmol/L (133-145) 05/25/25 11:45 Potassium 2.9 mmol/L (3.3-5.1) L 05/25/25 19:53 Chloride 99 mmol/L (98-108) 05/25/25 11:45 Carbon Dioxide 20.2 mmol/L (21.0-32.0) L 05/25/25 11:45 Anion Gap 21 (5-15) H 05/25/25 11:45 BUN 9 mg/dL (4-19) 05/25/25 11:45 Creatinine 0.80 mg/dL (0.70-1.20) 05/25/25 11:45 Est GFR (MDRD) Non-Af 83 (>60) 05/25/25 11:45 BUN/Creatinine Ratio 10.9 RATIO (10-20) 05/25/25 11:45 Glucose 123 mg/dL (70-99) H 05/25/25 11:45 Dosing Weight Weight used for dosin.9 kg Estimated Creatinine Clearance Estimated Creatinine Clearance: 96.47 Goal Trough Goal Trough: 15-20 mcg/mL Pharmacy Plan for Drug Dosing Pharmacy Plan for Drug Dosing: Pharmacy Service will continue to monitor and adjust dosing as required. ER DOSE 2GM GIVEN 05/25 @ 1609. START 1250MG Q8H AND DRAW TROUGH PRIOR TO 4TH DOSE Follow-Up Labs Follow-Up Labs: Trough: Vancomycin Date/Time Labs Ordered Labs to be done on [date and time ordered]: 05/26 @ 1600
[2025-05-26] VITALS (12 sets, daily range): BP systolic 86–156; BP diastolic 70–129; PULSE 95–128; RESP 13–20; TEMP 36.2–37.1; O2SAT 95–98
[2025-05-26] MEDS: Vancomycin HCl 1,250 MG in 0.9% Normal Saline (250mL Bag) 250 ML 167 MG IV ×2 (02:13→09:31)
[2025-05-26] MEDS: Piperacil/Tazobactam 3.375 GM in 0.9% Normal Saline (50mL MB+) 50 ML IV ×3 (06:15→23:03)
--- NOTE | 2025-05-26 06:43 | EX.PCM.CONCC ---
Assessment & Plan Assessment/Plan (1) Cirrhosis of liver with ascites: QUALIFIERS: Hepatic cirrhosis type: unspecified hepatic cirrhosis Qualified Code(s): K74.60 - Unspecified cirrhosis of liver; R18.8 - Other ascites (2) Sepsis: QUALIFIERS: Sepsis acute organ dysfunction status: with acute organ dysfunction Sepsis type: sepsis due to unspecified organism Severe sepsis acute organ dysfunction type: encephalopathy Severe sepsis shock status: without septic shock Qualified Code(s): A41.9 - Sepsis, unspecified organism; R65.20 - Severe sepsis without septic shock; G93.41 - Metabolic encephalopathy PLAN: Plan RECOMMENDATIONS: 1. Stop continuous IV fluids. 2. Recheck CMP and CBC this morning. Continue aggressive electrolyte repletion, as clinically indicated. 3. Continue empiric antimicrobials, pending culture results. 4. No need to continue to check lactate levels. 5. GI consultation is pending. 6. Transfer to [facility] is pending. IMPRESSIONS: 1. Sepsis The patient presented to the hospital with sepsis due to possible UTI with acute sepsis related organ dysfunction as evidenced by lactic acidemia and hyperbilirubinemia. The patient did receive supplemental IV fluid hydration and was started on empiric antibiotics. Cultures are currently pending. The patient remains otherwise hemodynamically stable. 2. Encephalopathy Most likely multifactorial in etiology. The patient does have a known history of cirrhosis with hyperammonemia, complicated by presenting sepsis. In addition, the patient has prescriptions for opiate pain medications along with gabapentin and tizanidine, which may also be contributing. CT head was unremarkable. Plan to continue to hold sedating medications for now. GI consultation is pending regarding the patient's cirrhosis. 3. History of liver cirrhosis/hyperbilirubinemia/coagulopathy Continue current supportive care, pending evaluation by gastroenterology. The patient has apparently been accepted for transfer to [facility] for hepatobiliary consultation. 4. Morbid obesity/chronic tobacco and THC use/hypokalemia/neuropathy/depression Complicates care, management, recovery and prognosis. Continue supportive measures as noted above. This note was generated with [employer] dictation software. It may contain incorrect words, spelling, and punctuation that were not noted in checking the note before signing. HPI Consult Data Date of Consult: 05/26/25 HPI Narrative Reason for Consultation: Sepsis HPI Narrative: The patient is a 65-year-old female, with a history as outlined below, who presented to the emergency department via EMS on May 25 after being found down at home with altered mental status. The patient has a known history of morbid obesity, hypertension, tobacco dependency, cirrhosis of the liver, neuropathy, depression and anxiety. While the patient is alert and interactive this morning, she is still notably confused and unable to provide any additional history. It should be noted that the patient is on a number of sedating medications, including gabapentin, hydrocodone and tizanidine. There is documentation by the emergency department provider that the patient has been noncompliant with her medications and refusing to go to scheduled appointments. On presentation to the emergency department, the patient was documented to have a temperature of 97.6 ?F. She was, however, documented to be tachycardic and tachypneic, but was maintaining appropriate oxygen saturations on room air. Laboratory evaluation was notable for a white blood cell count of 22,000. Coagulation profile was notable for an INR of 3.6. ABG was notable for a pH of 7.49 with a pCO2 of 28 and pO2 of 72. Chemistry profile was notable for a potassium of 2.8 with a creatinine of 0.80. Lactate was elevated at 8.9. Total bilirubin was increased to 5.9. Ammonia was increased at 133. Urine analysis was positive for nitrites, leukocyte esterase and 1+ urine bacteria. Toxicology screen was positive for cannabinoids. Alcohol level was negative. CT head revealed small vessel ischemic changes without acute intracranial hemorrhage. Chest x-ray demonstrated no acute cardiopulmonary process. CT abdomen/pelvis demonstrated a cirrhotic appearing liver with moderate volume ascites and colonic wall thickening. The patient received supplemental IV fluid hydration and was placed on antimicrobials. The patient was admitted to the medical intensive care unit for further management. Gastroenterology consultation is pending. According to ED documentation, the admitting hospitalist felt that the patient would likely be best served at a tertiary care facility with hepatobiliary services. Therefore, the patient was accepted for transfer to [facility]. [facility] Medical History no medical history Home Medications ?Medication ?Instructions ?Recorded ?Last Taken ?Type amlodipine 5 mg tablet 5 mg PO DAILY 10/08/20 Unknown History amlodipine 5 mg tablet 5 mg PO DAILY #30 tabs 10/08/20 Unknown Rx gabapentin 100 mg capsule 200 mg PO TID 10/08/20 Unknown History hydrochlorothiazide 12.5 mg capsule 12.5 mg PO DAILY 10/08/20 Unknown History hydrochlorothiazide 25 mg tablet 12.5 mg (1/2 x 25 mg) PO DAILY #30 10/08/20 Unknown Rx tabs hydrocodone 7.5 mg-acetaminophen 1 tab PO Q4H PRN PRN Pain Score 10/08/20 Unknown History 325 mg tablet 6-10 losartan 100 mg tablet 100 mg PO DAILY 10/08/20 Unknown History losartan 100 mg tablet 100 mg PO DAILY #30 tabs 10/08/20 Unknown Rx meloxicam 15 mg tablet 15 mg PO DAILY 10/08/20 Unknown History metoprolol succinate 25 mg 25 mg PO BID 10/08/20 Unknown History tablet,extended release 24 hr omeprazole 20 mg capsule,delayed 20 mg PO DAILY 10/08/20 Unknown History release tizanidine 2 mg capsule 2 mg PO QHS 10/08/20 10/07/20 History venlafaxine 75 mg capsule,extended 75 mg PO 10/08/20 Unknown History release 24 hr Allergy/AdvReac Type Severity Reaction Status Date / Time morphine Allergy Other Verified 05/25/25 11:24 Sulfa (Sulfonamide Allergy Rash Verified 05/25/25 11:24 Antibiotics) Family History no significant family his Surgical History no surgical history Social History Smoking Status: Current every day smoker tobacco type: cigarettes ROS Review of Systems ROS Unobtainable: due to mental status Physical Exam Const alert and no apparent distress Constitutional Narrative: While the patient is alert and interactive, she is still notably confused and disoriented. HEENT normocephalic and head/scalp atraumatic Eyes EOMs intact bilaterally and conjunctivae normal Neck supple General: trachea midline Chest inspection of chest normal Resp normal respiratory effort Auscultation: Negative for rales, rhonchi or wheezes Cardio S1 normal heart sound and S2 normal heart sound Rate: tachycardic GI soft to palpation and non-tender Extremity General Extremity: edema bilateral lower extremity; Negative for clubbing Skin no rashes or lesions noted Neuro CN's II-XII intact bilaterally and moves all extremities Psych cooperative Lab / Micro Data 05/26/25 08:05 05/26/25 08:05 Labs: Laboratory Results - last 24 hr 05/25/25 11:30: WBC 22.2 H, RBC 4.28, Hgb 13.2, Hct 39.4, MCV 92.1, MCH 30.8, MCHC 33.5, RDW Std Deviation 57.1 H, RDW Coeff of Micki 17.5 H, Plt Count 448, MPV 9.2, Immature Gran % (Auto) 1.300 H, Neut % (Auto) 87.6 H, Lymph % (Auto) 5.3 L, [place] % (Auto) 5.4, Eos % (Auto) 0.0, Baso % (Auto) 0.4, Absolute Neuts (auto) 19.5 H, Absolute Lymphs (auto) 1.18, Nucleated RBC % 0.1 05/25/25 11:45: Sodium 140, Potassium 2.8 L, Chloride 99, Carbon Dioxide 20.2 L, Anion Gap 21 H, BUN 9, Creatinine 0.80, Estim Creat Clear Calc 96.47, Est GFR (MDRD) Non-Af 83, BUN/Creatinine Ratio 10.9, Glucose 123 H, Lactic Acid 8.9 H*, Calcium 8.9, Total Bilirubin 5.99 H, AST 71 H, ALT 26, Alkaline Phosphatase 92, Ammonia 133.0 H, Total Creatine Kinase 168, Total Protein 6.7, Albumin 2.8 L, Globulin 3.8, Albumin/Globulin Ratio 0.7 L, Ethyl Alcohol < 10.1 05/25/25 12:00: Urine Opiates Screen NEGATIVE, U Buprenorphine Qual NEGATIVE, Ur Oxycodone Screen NEGATIVE, Urine Methadone Screen NEGATIVE, Urine Fentanyl Screen NEGATIVE, Ur Barbiturates Screen NEGATIVE, Ur Phencyclidine Scrn NEGATIVE, Ur Amphetamines Screen NEGATIVE, U Benzodiazepines Scrn NEGATIVE, Urine Cocaine Screen NEGATIVE, U Cannabinoids Screen PRESUMPTIVE POSITIVE 05/25/25 13:00: Urine Color Pilar, Urine Clarity Sl. Cloudy, Urine pH 6.0, Ur Specific [place] 1.020, Urine Protein 100 H, Urine Glucose (UA) 50 H, Urine Ketones 5 H, Urine Occult Blood 25 H, Urine Nitrite Positive H, Urine Bilirubin 3 H, Urine Urobilinogen 12 H, Ur Leukocyte Esterase 25 H, Urine RBC 0 SEEN, Urine WBC 0-5 SEEN, Ur Squamous Epith Cells 0-5 SEEN, Urine Bacteria 1+, Hyaline Casts 0-5 SEEN, Urine Mucus 1+ 05/25/25 15:30: PT 36.7 H, INR 3.6, APTT 50.7 H 05/25/25 18:10: Lactic Acid 5.5 H* 05/25/25 19:53: Potassium 2.9 L, Magnesium 1.3 L Micro: Microbiology 05/25/25 12:08 Blood Culture (Wb) - Venous Bacteria Detection (PCR) - Preliminary Staphylococcus aureus 05/25/25 12:08 Blood Culture (Wb) - Venous Blood Culture - Preliminary 05/25/25 22:15 Mucosa - Nasopharyngeal Respiratory Panel (PCR) - Final ABG Data ABG results: ABG 05/25/25 22:30 Specimen Type ART Sample Site L Radial pH 7.49 H Bicarbonate Actual 21.8 L Total CO2 23 Base Excess -2 O2 Saturation 96 ABG pCO2 28.4 L ABG pO2 72 L Bill Test Positive O2 Delivery Device Room Air Vent Mode Not entered Imaging Radiology Impression Brain CT 05/25/25 11:56 IMPRESSION: 1. No acute intracranial hemorrhage, midline shift or mass effect. If symptoms persist, further evaluation with MRI is recommended. 2. Mild small vessel ischemic/degenerative changes. Reading [facility] Chest X-Ray 05/25/25 11:56 IMPRESSION: Underexpanded lungs without a superimposed acute pulmonary process Reading Location: [facility] Pelvis X-Ray 05/25/25 12:01 IMPRESSION: Age consistent degenerative changes, no acute findings Reading Location: [facility] Abdomen/Pelvis CT 05/25/25 15:11 IMPRESSION: Cirrhotic liver morphology. Moderate volume ascites. Colonic wall thickening which may be due to portal hypertension or colitis. Indeterminate left adrenal nodule. Further characterization with nonemergent adrenal protocol CT is recommended. Reading Location: [id number] Charges/Coding Visit Charges Inpatient E&M: 76227 Init Hosp L3
[2025-05-26] MEDS: Magnesium Sulfate 2 GM in Dextrose 5%-Water (100mL Bag) 100 ML IV (07:22)
--- NOTE | 2025-05-26 07:24 | PCM.PN.HOSP ---
Reason for Visit Reason for Visit: Diagnoses Sepsis, unspecified organism (05/25/25) Bandemia (05/25/25) Morbid (severe) obesity due to excess calories (05/25/25) Disorder of urea cycle metabolism, unspecified (05/25/25) Other disorders of bilirubin metabolism (05/25/25) Hypomagnesemia (05/25/25) Acidosis, unspecified (05/25/25) Hypokalemia (05/25/25) Cannabis abuse, uncomplicated (05/25/25) Metabolic encephalopathy (05/25/25) Noninfective gastroenteritis and colitis, unspecified (05/25/25) Unspecified cirrhosis of liver (05/25/25) Hepatic encephalopathy (05/25/25) Other ascites (05/25/25) Severe sepsis without septic shock (05/25/25) Abnormal coagulation profile (05/25/25) Body mass index [BMI] 40.0-44.9, adult (05/25/25) Tobacco use (05/25/25) Patient's noncompliance with other medical treatment and regimen due to unspecified reason (05/25/25) Objective Data Objective Data Vital Signs: Vital Signs Temp Pulse Resp BP Pulse Ox O2 Del Method 98.7 F 121 H 18 139/93 H 98 Room Air 05/26/25 04:00 05/26/25 06:00 05/26/25 06:00 05/26/25 06:00 05/26/25 06:00 05/26/25 06:00 Oxygen Delivery Method Room Air Weight: 288 lb 9.361 oz Body Mass Index (BMI) 46.5 Intake & Output: Intake and Output for Last 24 Hours 05/24/25 05/25/25 05/26/25 23:59 23:59 23:59 Intake Total 6740 / 6740 1825 / 1825 Output Total 750 / 750 200 / 200 Balance 5990 / 5990 1625 / 1625 Lab / Micro Data 05/26/25 08:05 05/26/25 08:05 Labs: Laboratory Results - last 24 hr 05/25/25 11:30: WBC 22.2 H, RBC 4.28, Hgb 13.2, Hct 39.4, MCV 92.1, MCH 30.8, MCHC 33.5, RDW Std Deviation 57.1 H, RDW Coeff of Micki 17.5 H, Plt Count 448, MPV 9.2, Immature Gran % (Auto) 1.300 H, Neut % (Auto) 87.6 H, Lymph % (Auto) 5.3 L, [place] % (Auto) 5.4, Eos % (Auto) 0.0, Baso % (Auto) 0.4, Absolute Neuts (auto) 19.5 H, Absolute Lymphs (auto) 1.18, Nucleated RBC % 0.1 05/25/25 11:45: Sodium 140, Potassium 2.8 L, Chloride 99, Carbon Dioxide 20.2 L, Anion Gap 21 H, BUN 9, Creatinine 0.80, Estim Creat Clear Calc 96.47, Est GFR (MDRD) Non-Af 83, BUN/Creatinine Ratio 10.9, Glucose 123 H, Lactic Acid 8.9 H*, Calcium 8.9, Total Bilirubin 5.99 H, AST 71 H, ALT 26, Alkaline Phosphatase 92, Ammonia 133.0 H, Total Creatine Kinase 168, Total Protein 6.7, Albumin 2.8 L, Globulin 3.8, Albumin/Globulin Ratio 0.7 L, Ethyl Alcohol < 10.1 05/25/25 12:00: Urine Opiates Screen NEGATIVE, U Buprenorphine Qual NEGATIVE, Ur Oxycodone Screen NEGATIVE, Urine Methadone Screen NEGATIVE, Urine Fentanyl Screen NEGATIVE, Ur Barbiturates Screen NEGATIVE, Ur Phencyclidine Scrn NEGATIVE, Ur Amphetamines Screen NEGATIVE, U Benzodiazepines Scrn NEGATIVE, Urine Cocaine Screen NEGATIVE, U Cannabinoids Screen PRESUMPTIVE POSITIVE 05/25/25 13:00: Urine Color Pilar, Urine Clarity Sl. Cloudy, Urine pH 6.0, Ur Specific [place] 1.020, Urine Protein 100 H, Urine Glucose (UA) 50 H, Urine Ketones 5 H, Urine Occult Blood 25 H, Urine Nitrite Positive H, Urine Bilirubin 3 H, Urine Urobilinogen 12 H, Ur Leukocyte Esterase 25 H, Urine RBC 0 SEEN, Urine WBC 0-5 SEEN, Ur Squamous Epith Cells 0-5 SEEN, Urine Bacteria 1+, Hyaline Casts 0-5 SEEN, Urine Mucus 1+ 05/25/25 15:30: PT 36.7 H, INR 3.6, APTT 50.7 H 05/25/25 18:10: Lactic Acid 5.5 H* 05/25/25 19:53: Potassium 2.9 L, Magnesium 1.3 L Micro: Microbiology 05/25/25 12:08 Blood Culture (Wb) - Venous Bacteria Detection (PCR) - Preliminary Staphylococcus aureus 05/25/25 12:08 Blood Culture (Wb) - Venous Blood Culture - Preliminary 05/25/25 22:15 Mucosa - Nasopharyngeal Respiratory Panel (PCR) - Final ABG Data ABG results: ABG 05/25/25 22:30 Specimen Type ART Sample Site L Radial pH 7.49 H Bicarbonate Actual 21.8 L Total CO2 23 Base Excess -2 O2 Saturation 96 ABG pCO2 28.4 L ABG pO2 72 L Bill Test Positive O2 Delivery Device Room Air Vent Mode Not entered Radiography Diagnostic Testing: Radiology Impression Brain CT 05/25/25 11:56 IMPRESSION: 1. No acute intracranial hemorrhage, midline shift or mass effect. If symptoms persist, further evaluation with MRI is recommended. 2. Mild small vessel ischemic/degenerative changes. Reading Location: [facility] Chest X-Ray 05/25/25 11:56 IMPRESSION: Underexpanded lungs without a superimposed acute pulmonary process Reading Location: [facility] Pelvis X-Ray 05/25/25 12:01 IMPRESSION: Age consistent degenerative changes, no acute findings Reading Location: [facility] Abdomen/Pelvis CT 05/25/25 15:11 IMPRESSION: Cirrhotic liver morphology. Moderate volume ascites. Colonic wall thickening which may be due to portal hypertension or colitis. Indeterminate left adrenal nodule. Further characterization with nonemergent adrenal protocol CT is recommended. Reading Location: [id number] Physical Exam Narrative Patient is confused, conversant, talking incoherent that does not make sense most of the time. Disoriented to time and place., She states she does not know whether she has cirrhosis Physical exam General: Awake, confused, disoriented HEENT: Atraumatic, PERRLA, EOMI, Normocephalic. Oral: No Gingival or Mucosal Lesions/ Ulcerations Neck: Supple, No JVD, Negative Carotid Bruits Chest wall/Lungs: Air entry diminished in bilateral lung bases. No crepitation/rhonchi Cardiovascular: Regular rate and rhythm, Normal S1,S2, No M/G/R Abdomen: Bowel Sounds Present, Soft, distended, moderate ascites but also fatty abdomen. Nonspecific diffuse tenderness : No dysuria. No renal angle tenderness. No suprapubic tenderness. Extremities: bilateral 3+ thigh edema, Capillary Refill Less than 3 Seconds Skin: No rashes, No breakdown Musculoskeletal: No Tenderness to Palpation of Joints or Extremities. ROM restricted Neurological: Detailed neuroexam unobtainable. No obvious long tracts focal lateralizing sign Psych/Mental Status: Flat affect Assessment & Plan Assessment/Plan (1) Sepsis: QUALIFIERS: Sepsis acute organ dysfunction status: with acute organ dysfunction Sepsis type: sepsis due to unspecified organism Severe sepsis acute organ dysfunction type: encephalopathy Severe sepsis shock status: without septic shock Qualified Code(s): A41.9 - Sepsis, unspecified organism; R65.20 - Severe sepsis without septic shock; G93.41 - Metabolic encephalopathy (2) Leukocytosis: QUALIFIERS: Leukocytosis type: bandemia Qualified Code(s): D72.825 - Bandemia (3) Lactic acidosis: (4) Colitis: (5) Cirrhosis of liver with ascites: QUALIFIERS: Hepatic cirrhosis type: unspecified hepatic cirrhosis Qualified Code(s): K74.60 - Unspecified cirrhosis of liver; R18.8 - Other ascites (6) Hyperbilirubinemia: (7) Hyperammonemia: (8) Hepatic encephalopathy: (9) Medical non-compliance: (10) Elevated INR: (11) Hypokalemia: (12) Hypomagnesemia: (13) Cannabis abuse: (14) Morbid obesity with BMI of 40.0-44.9, adult: (15) Tobacco abuse: PLAN: Plan 65-year-old female was brought to ED by EMS for altered mental status, worsening confusion for last few months more for last couple days. She was found on the floor for last 8 hours in her bathroom. Glucose by EMS was 159. 1. Concern of sepsis exact etiology unclear but possible colitis: Patient is being admitted in ICU with concern of sepsis leukocytosis 20 2.K, left shift 1.3%, lactic acidosis 8.9. CT abdomen/pelvis shows cirrhosis with moderate volume ascites and colonic wall thickening may be due to portal hypertension or colitis.Chest x-ray no acute cardiopulmonary process. Temperature 97.6 ?F, tachycardic, tachypneic but no hypoxia. ABG 7.4 08/22/72. Hypokalemia K2.8. Creatinine 0.8. AG 21. Bicarb 20. Lactic acidosis 8.9. CPK 168 normal. Repeat lactic acid 5.5, serum magnesium 2.9 and magnesium 1.3. INR very high 3.6. PTT 36.7. UA positive of nitrite, WBC 0-5, RBC 0-5 bacteria 1+ proteinuria therefore not very specific for UTI. Patient's heart self-centered she does not have burning pain but she is confused therefore history not reliable. Patient started on empiric IV vancomycin and Zosyn. Patient has been accepted in [facility] but admitted as a bed not available. I talked to the [facility] transfer in afternoon and they do not have bed. Patient is unable to priority and transfer his discharge dependent. 2. Cirrhosis decompensated with portal hypertension, ascites, hyperbilirubinemia 5.99, Hepatic encephalopathy and coagulopathy. AST 71, ALT 26, alkaline phosphatase 92 normal. No previous labs available to compare. Hold for serum potassium more than 5.0 albumin 2.8. Thrombocytosis, platelet 448, was 620 in June 2015. INR 3.6. Does not seem to be on anticoagulant.Serum alcohol negative. U tox was positive of cannabis Patient has ascites and bilateral lower extremity swelling and lactic acid may be elevated because of decreased effective plasma volume. Furosemide spironolactone, lactulose and Xifaxan and carvedilol ordered. 4. Hypokalemia of 2.8 mmol/L and Hypomagnesemia of 1.3 mg/dL both present on admission: Potassium and magnesium replaced. Recheck the serum level give magnesium sulfate 2g IV once and then recheck level to confirm repletion. /: Repeat potassium is 3.6. Patient started on spironolactone. 5. Morbid (class III) obesity; with BMI of 44.9 this admission - Weight loss will be recommended. TSH pending Chronic Tobacco Abuse - Tobacco Cessation will be strongly encouraged once sensorium clears. Please nicotine patch to control cravings. 8. Essential hypertension; on amlodipine, losartan, metoprolol and chlorothiazide -started on carvedilol as this is effective in portal hypertension. Neuropathy; on gabapentin 3 times daily - Restart gabapentin when she can reliably tolerate oral intake. 10. Depression; on venlafaxine - Hold this agent until sensorium clears. 11. GERD; on omeprazole - Maintain PPI IV. 12. OA; on meloxicam, tizanidine nightly plus as needed hydrocodone-acetaminophen every 4 hours as needed - 13. DVT prophylaxis - SCD's only with patient already auto-anticoagulated with elevated INR of 3.6. Bilateral AC I called To her DAUGHTER, Kizzy and left a message to call back. I wanted to ask about her CODE STATUS. Charges/Coding Visit Charges Inpatient E&M: 73088 Subs Hosp L3
[2025-05-26 08:53] LABS: AST(SGOT) 92 U/L (<=31); Alanine Aminotransfer ALT/SGPT 29 U/L (<=34); Albumin, Serum 2.7 g/dL (3.4-4.8); Alkaline Phosphatase 86 U/L (35-104); Anion Gap 15 (5-15); BUN 8 mg/dL (4-19); BUN/Creat Ratio 13.4 RATIO (10-20); Bilirubin, Direct 2.28 mg/dL (0.00-0.30); Calcium,Total 8.1 mg/dL (7.6-11.0); Carbon Dioxide 19.4 mmol/L (21.0-32.0); Chloride 107 mmol/L (98-108); Estimated Creatinine Clearance 127.26 ml/min (50-250); Globulin 3.5 g/dL (2.2-4.2); Glucose 109 mg/dL (70-99); Potassium 3.6 mmol/L (3.3-5.1)
[2025-05-26 09:04] LABS: Hematocrit 37.7 % (37-47); Hemoglobin 12.9 g/dL (12.0-15.0); Immature Granulocytes Count 0.260 X10^3/uL (0.0-0.0); Mean Corp Hgb Conc 34.2 g/dL (32-36); Mean Corpuscular Volume 92.0 fL (81-99); Mean Platelet Vol. 9.6 fl (6.2-12.0); NRBC Flagged by Analyzer 0 % (0-5); Platelet Count 377 K/mm3 (150-450); RBC Distribution Width CV 17.8 % (11.6-14.6); RBC Distribution Width SD 58.4 fl (35.1-43.9); Red Blood Count 4.10 M/mm3 (4.2-5.4); White Blood Count 19.4 K/mm3 (4.4-11.0)
--- NOTE | 2025-05-26 09:22 | CASEMGMT ---
Insurance review for hospitals In-network with?MCR insurance if transfer is recommended is as follows: [facility], [facility], [place], [facility], [facility], [facility], , [place], [facility], [facility], and [place].
[2025-05-26] MEDS: Pantoprazole Sodium 40 MG in 0.9% Normal Saline (100mL MB+) 100 ML 330 MG IV (10:28)
[2025-05-26 10:39] LABS: Prothrombin Time (Protime)PT. 40.8 SECONDS (11.7-14.9)
[2025-05-26 10:55] LABS: Reflex Lactate? Y
[2025-05-26 11:19] LABS: Ammonia 35.5 umol/L (11-51)
[2025-05-26] MEDS: Phytonadione (Vit K) 5 MG in 0.9% Normal Saline (50mL Bag) 50 ML 150 MG IV (15:53)
[2025-05-26] MEDS: Vancomycin Trough/Random Due 1 LAB MC (16:05)
[2025-05-26 16:43] LABS: Vancomycin, Trough Level 22.8 ug/mL (5.0-15.0)
--- NOTE | 2025-05-26 16:56 | PCM.RX.CS ---
Consult Antibiotic Management Pharmacy has been consulted to manage selected antibiotic: Vancomycin Type of Intervention Type of Consult: Follow-up Suspected Infection Suspected Infection: Sepsis Prior Doses of Antibiotics Prior Doses of Antibiotics Received/Current Regimen: 05/26/25 @ 0213 VAncomycin 1250mg 05/26/25 @ 0931 Vancomycin 1250mg Labs Labs: Sodium 141 mmol/L (133-145) 05/26/25 08:05 Potassium 3.6 mmol/L (3.3-5.1) 05/26/25 08:05 Chloride 107 mmol/L (98-108) 05/26/25 08:05 Carbon Dioxide 19.4 mmol/L (21.0-32.0) L 05/26/25 08:05 Anion Gap 15 (5-15) 05/26/25 08:05 BUN 8 mg/dL (4-19) 05/26/25 08:05 Creatinine 0.62 mg/dL (0.70-1.20) L 05/26/25 08:05 Est GFR (MDRD) Non-Af 100 (>60) 05/26/25 08:05 BUN/Creatinine Ratio 13.4 RATIO (10-20) 05/26/25 08:05 Glucose 109 mg/dL (70-99) H 05/26/25 08:05 Vancomycin Trough 22.8 ug/mL (5.0-15.0) H 05/26/25 16:02 Microbiology Microbiology: Microbiology 05/25/25 12:08 Blood Culture (Wb) - Venous Bacteria Detection (PCR) - Final Staphylococcus aureus 05/25/25 12:08 Blood Culture (Wb) - Venous Blood Culture - Preliminary 05/25/25 22:15 Mucosa - Nasopharyngeal Respiratory Panel (PCR) - Final Dosing Weight Weight used for dosin kg Estimated Creatinine Clearance Estimated Creatinine Clearance: 128 Goal Trough Goal Trough: 15-20 mcg/mL Pharmacy Plan for Drug Dosing Pharmacy Plan for Drug Dosing: Hold VAncomycin for now and draw a random Vancomycin level 05/26/25 @ 0100 Pharmacy Service will continue to monitor and adjust dosing as required. Follow-Up Labs Follow-Up Labs: Trough: Other Date/Time Labs Ordered Labs to be done on [date and time ordered]: 05/27/25 @ 0100
[2025-05-26 17:03] LABS: FOLATES,SERUM (FOLIC ACID) 12.50 ng/mL (4.60-34.80)
[2025-05-26 17:12] LABS: Cholesterol 66 mg/dL (<=200); Low Density Lipoprotein Calc. 39 mg/dL; Triglycerides 90 mg/dL; Very Low Density Lipoprotein 18 mg/dL (5-40); cholesterol:hdl ratio screen 7.19
[2025-05-26 17:42] LABS: Vitamin B12 2893 pg/mL (180-914)
[2025-05-26 17:51] LABS: Magnesium 1.4 mg/dL (1.5-2.2)
--- NOTE | 2025-05-26 18:08 | EX.PCM.CON.G ---
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 It is not known if she has a history of GI bleed. She does have a history of noncompliance. She was sent to [facility] due to altered mental status was found down at home. In the ED she was normotensive but tachycardic. She does take metoprolol for high blood pressure. However it is not known if she takes her medicines on a daily basis. As per daughter she has never undergone paracentesis. As per her daughter she has been gaining weight and on admission her BMI is 44.9. Laboratory analysis revealed leukocytosis of 22,000 without left shift. She has had 3 admissions over the last 10 years to our hospital and her white blood cell count is always high. Her alcohol level was negative by her labs. WBC 19.4 H, RBC 4.10 L, Hgb 12.9, Hct 37.7, MCV 92.0, MCH 31.5, MCHC 34.2, RDW Std Deviation 58.4 H, RDW Coeff of Micki 17.8 H, Plt Count 377, MPV 9.6, Immature Gran % (Auto) 1.300 H, Neut % (Auto) 87.0 H, Lymph % (Auto) 6.0 L, [place] % (Auto) 5.3, Eos % (Auto) 0.1, Baso % (Auto) 0.3, Absolute Neuts (auto) 16.9 H, Absolute Lymphs (auto) 1.17, Nucleated RBC % 0, Sodium 141, Potassium 3.6, Chloride 107, Carbon Dioxide 19.4 L, Anion Gap 15, BUN 8, Creatinine 0.62 L, Estim Creat Clear Calc 127.26, Est GFR (MDRD) Non-Af 100, BUN/Creatinine Ratio 13.4, Glucose 109 H, Calcium 8.1, Phosphorus 2.1 L, Magnesium 1.4 L, Total Bilirubin 5.08 H, Direct Bilirubin 2.28 H, AST 92 H, ALT 29, Alkaline Phosphatase 86, Total Protein 6.2, Albumin 2.7 L, Globulin 3.5, Albumin/Globulin Ratio 0.8 L, Triglycerides 90, Cholesterol 66, LDL Cholesterol, Calc 39, VLDL Cholesterol 18, HDL Cholesterol 9 L, Cholesterol/HDL Ratio 7.19 05/26/25 10:00: PT 40.8 H, INR 4.1 H*, Ammonia 35.5 05/26/25 16:02: Vancomycin Trough 22.8 H In the ED she was started on vancomycin and Zosyn. CT/Abdomen/Pelvis W IV Cont ONLY IMPRESSION: Cirrhotic liver morphology. Moderate volume ascites. Colonic wall thickening which may be due to portal hypertension or colitis. [facility] Medical History unable to obtain Home Medications ?Medication ?Instructions ?Recorded ?Last Taken ?Type amlodipine 5 mg tablet 5 mg PO DAILY 10/08/20 Unknown History amlodipine 5 mg tablet 5 mg PO DAILY #30 tabs 10/08/20 Unknown Rx gabapentin 100 mg capsule 200 mg PO TID 10/08/20 Unknown History hydrochlorothiazide 12.5 mg capsule 12.5 mg PO DAILY 10/08/20 Unknown History hydrochlorothiazide 25 mg tablet 12.5 mg (1/2 x 25 mg) PO DAILY #30 10/08/20 Unknown Rx tabs hydrocodone 7.5 mg-acetaminophen 1 tab PO Q4H PRN PRN Pain Score 10/08/20 Unknown History 325 mg tablet 6-10 losartan 100 mg tablet 100 mg PO DAILY 10/08/20 Unknown History losartan 100 mg tablet 100 mg PO DAILY #30 tabs 10/08/20 Unknown Rx meloxicam 15 mg tablet 15 mg PO DAILY 10/08/20 Unknown History metoprolol succinate 25 mg 25 mg PO BID 10/08/20 Unknown History tablet,extended release 24 hr omeprazole 20 mg capsule,delayed 20 mg PO DAILY 10/08/20 Unknown History release tizanidine 2 mg capsule 2 mg PO QHS 10/08/20 10/07/20 History venlafaxine 75 mg capsule,extended 75 mg PO 10/08/20 Unknown History release 24 hr Allergy/AdvReac Type Severity Reaction Status Date / Time morphine Allergy Other Verified 05/25/25 11:24 Sulfa (Sulfonamide Allergy Rash Verified 05/25/25 11:24 Antibiotics) Family History unable to obtain Surgical History unable to obtain Social History Smoking Status: Current every day smoker tobacco type: cigarettes Physical Exam Const alert, oriented x3, no apparent distress and healthy appearing General Appearance: cooperative GI normal to inspection, nondistended, normoactive bowel sounds, soft to palpation, non-tender and non-distended Percussion: normal to percussion Rectal Exam: deferred Lab / Micro Data 05/26/25 08:05 05/26/25 08:05 Labs: Laboratory Results - last 24 hr 05/25/25 08:05: Hemoglobin A1c 4.5, Vitamin B12 2893 H, TSH 0.747 05/25/25 11:45: Serum Folate 12.50 05/25/25 15:30: APTT 50.7 H 05/25/25 18:10: Lactic Acid 5.5 H* 05/25/25 19:53: Potassium 2.9 L, Magnesium 1.3 L 05/26/25 06:52: Lactic Acid 4.1 H* 05/26/25 08:05: WBC 19.4 H, RBC 4.10 L, Hgb 12.9, Hct 37.7, MCV 92.0, MCH 31.5, MCHC 34.2, RDW Std Deviation 58.4 H, RDW Coeff of Micki 17.8 H, Plt Count 377, MPV 9.6, Immature Gran % (Auto) 1.300 H, Neut % (Auto) 87.0 H, Lymph % (Auto) 6.0 L, [place] % (Auto) 5.3, Eos % (Auto) 0.1, Baso % (Auto) 0.3, Absolute Neuts (auto) 16.9 H, Absolute Lymphs (auto) 1.17, Nucleated RBC % 0, Sodium 141, Potassium 3.6, Chloride 107, Carbon Dioxide 19.4 L, Anion Gap 15, BUN 8, Creatinine 0.62 L, Estim Creat Clear Calc 127.26, Est GFR (MDRD) Non-Af 100, BUN/Creatinine Ratio 13.4, Glucose 109 H, Calcium 8.1, Phosphorus 2.1 L, Magnesium 1.4 L, Total Bilirubin 5.08 H, Direct Bilirubin 2.28 H, AST 92 H, ALT 29, Alkaline Phosphatase 86, Total Protein 6.2, Albumin 2.7 L, Globulin 3.5, Albumin/Globulin Ratio 0.8 L, Triglycerides 90, Cholesterol 66, LDL Cholesterol, Calc 39, VLDL Cholesterol 18, HDL Cholesterol 9 L, Cholesterol/HDL Ratio 7.19 05/26/25 10:00: PT 40.8 H, INR 4.1 H*, Ammonia 35.5 05/26/25 16:02: Vancomycin Trough 22.8 H Micro: Microbiology 05/25/25 12:08 Blood Culture (Wb) - Venous Bacteria Detection (PCR) - Final Staphylococcus aureus 05/25/25 12:08 Blood Culture (Wb) - Venous Blood Culture - Preliminary 05/25/25 22:15 Mucosa - Nasopharyngeal Respiratory Panel (PCR) - Final ABG Data ABG results: ABG 05/25/25 22:30 Specimen Type ART Sample Site L Radial pH 7.49 H Bicarbonate Actual 21.8 L Total CO2 23 Base Excess -2 O2 Saturation 96 ABG pCO2 28.4 L ABG pO2 72 L Bill Test Positive O2 Delivery Device Room Air Vent Mode Not entered Assessment & Plan Assessment/Plan (1) Sepsis: QUALIFIERS: Sepsis type: sepsis due to unspecified organism Sepsis acute organ dysfunction status: with acute organ dysfunction Severe sepsis acute organ dysfunction type: encephalopathy Severe sepsis shock status: without septic shock Qualified Code(s): A41.9 - Sepsis, unspecified organism; R65.20 - Severe sepsis without septic shock; G93.41 - Metabolic encephalopathy (2) Leukocytosis: QUALIFIERS: Leukocytosis type: bandemia Qualified Code(s): D72.825 - Bandemia (3) Lactic acidosis: (4) Colitis: (5) Cirrhosis of liver with ascites: QUALIFIERS: Hepatic cirrhosis type: unspecified hepatic cirrhosis Qualified Code(s): K74.60 - Unspecified cirrhosis of liver; R18.8 - Other ascites (6) Hyperbilirubinemia: (7) Hyperammonemia: (8) Hepatic encephalopathy: (9) Medical non-compliance: (10) Elevated INR: (11) Hypokalemia: (12) Hypomagnesemia: (13) Cannabis abuse: (14) Morbid obesity with BMI of 40.0-44.9, adult: (15) Tobacco abuse: PLAN: Plan 65-year-old female with cryptogenic cirrhosis and confusion. Differential diagnosis does include urinary tract infection, SBP, pneumonia. She was brought to ED by EMS for altered mental status, worsening confusion for last few months more for last couple days. - Cirrhosis: Her current MELD is very high at 30 due to her very high INR. This could be all nutritional. Therefore recommend to give 5 mg IV of vitamin K. His platelet count and complete blood count do not really correspond with how she looks physically. KONSTANTIN score cannot be calculated as I cannot figure out if she drank any alcohol. Therefore we would not empirically give steroids. Hopefully his INR will improve with vitamin K. I do not think she is suffering from infectious colitis as she is not having any diarrhea at this time. Patient is supposed to be transferred. Agree with Xifaxan and continue lactulose. She had a very good response to lactulose. She still grade 2 to grade 3 hepatic encephalopathy. Continue antibiotics for now. Charges/Coding Visit Charges Inpatient E&M: 55545 Init Hosp L3
--- NOTE | 2025-05-26 18:33 | NURSING ---
This RN is taking over care of pt at this time.
[2025-05-26] MEDS: 0.9% Saline Lock 10 ML Syringe IV (23:02)
[2025-05-27] VITALS (8 sets, daily range): BP systolic 118–142; BP diastolic 67–98; PULSE 76–102; RESP 16–20; TEMP 36.6–37.1; O2SAT 95–100; BMI 47.3
[2025-05-27 01:31] LABS: Vancomycin, Random Level 15.0 ug/mL (0.0-15.0)
[2025-05-27 01:37] LABS: Hematocrit 37.9 % (37-47); Hemoglobin 12.5 g/dL (12.0-15.0); Immature Granulocytes Count 0.180 X10^3/uL (0.0-0.0); Mean Corp Hgb Conc 33.0 g/dL (32-36); Mean Corpuscular Volume 93.3 fL (81-99); Mean Platelet Vol. 9.7 fl (6.2-12.0); NRBC Flagged by Analyzer 0.2 % (0-5); Platelet Count 177 K/mm3 (150-450); RBC Distribution Width CV 17.9 % (11.6-14.6); RBC Distribution Width SD 59.6 fl (35.1-43.9); Red Blood Count 4.06 M/mm3 (4.2-5.4); White Blood Count 12.9 K/mm3 (4.4-11.0)
[2025-05-27 01:56] LABS: Magnesium 1.7 mg/dL (1.5-2.2)
[2025-05-27 02:01] LABS: AST(SGOT) 107 U/L (<=31); Alanine Aminotransfer ALT/SGPT 38 U/L (<=34); Albumin, Serum 2.6 g/dL (3.4-4.8); Alkaline Phosphatase 78 U/L (35-104); Anion Gap 14 (5-15); BUN 10 mg/dL (4-19); BUN/Creat Ratio 17.4 RATIO (10-20); Calcium,Total 8.1 mg/dL (7.6-11.0); Carbon Dioxide 18.6 mmol/L (21.0-32.0); Chloride 107 mmol/L (98-108); Estimated Creatinine Clearance 138.42 ml/min (50-250); Globulin 3.1 g/dL (2.2-4.2); Glucose 156 mg/dL (70-99); Potassium 3.6 mmol/L (3.3-5.1)
--- NOTE | 2025-05-27 02:17 | PCM.RX.CS ---
Consult Antibiotic Management Pharmacy has been consulted to manage selected antibiotic: Vancomycin Type of Intervention Type of Consult: Follow-up Suspected Infection Suspected Infection: Sepsis Labs Labs: Sodium 140 mmol/L (133-145) 05/27/25 00:51 Potassium 3.6 mmol/L (3.3-5.1) 05/27/25 00:51 Chloride 107 mmol/L (98-108) 05/27/25 00:51 Carbon Dioxide 18.6 mmol/L (21.0-32.0) L 05/27/25 00:51 Anion Gap 14 (5-15) 05/27/25 00:51 BUN 10 mg/dL (4-19) 05/27/25 00:51 Creatinine 0.57 mg/dL (0.70-1.20) L 05/27/25 00:51 Est GFR (MDRD) Non-Af 101 (>60) 05/27/25 00:51 BUN/Creatinine Ratio 17.4 RATIO (10-20) 05/27/25 00:51 Glucose 156 mg/dL (70-99) H 05/27/25 00:51 Vancomycin Trough 22.8 ug/mL (5.0-15.0) H 05/26/25 16:02 Random Vancomycin 15.0 ug/mL (0.0-15.0) 05/27/25 00:51 Microbiology Microbiology: Microbiology 05/26/25 17:51 Nasal Secretion MRSA (PCR) - Final 05/25/25 12:08 Blood Culture (Wb) - Venous Bacteria Detection (PCR) - Final Staphylococcus aureus 05/25/25 12:08 Blood Culture (Wb) - Venous Blood Culture - Preliminary 05/25/25 22:15 Mucosa - Nasopharyngeal Respiratory Panel (PCR) - Final Dosing Weight Weight used for dosin kg Estimated Creatinine Clearance Estimated Creatinine Clearance: 127 Goal Trough Goal Trough: 15-20 mcg/mL Pharmacy Plan for Drug Dosing Pharmacy Plan for Drug Dosing: Random vancomycin level resulted at 15.0. This was 15.3hrs post-dose. With this being back within therapeutic level, dosing will be restarted. Per vanco calculator, a new dose of 1500mg q12h should give an estimated trough of 17.2. This will be started now & a trough drawn prior to the fourth dose of the new regimen. Pharmacy Service will continue to monitor and adjust dosing as required. Follow-Up Labs Follow-Up Labs: Trough: Vancomycin Date/Time Labs Ordered Labs to be done on [date and time ordered]: 05/28/25 @1400
[2025-05-27] MEDS: Vancomycin HCl 1,500 MG in 0.9% Normal Saline (500mL Bag) 500 ML 250 MG IV ×2 (02:26→15:06)
[2025-05-27 04:07] LABS: GGTP 22 IU/L (0-60)
[2025-05-27 06:29] LABS: Ammonia 60.1 umol/L (11-51)
[2025-05-27] MEDS: Piperacil/Tazobactam 3.375 GM in 0.9% Normal Saline (50mL MB+) 50 ML IV ×3 (06:33→22:29)
[2025-05-27] MEDS: Pantoprazole Sodium 40 MG in 0.9% Normal Saline (100mL MB+) 100 ML 330 MG IV (09:18)
--- NOTE | 2025-05-27 10:56 | US_ITS ---
PROCEDURE: PARACENTESIS WITH US 05/27/2025 REASON FOR EXAM: ASCITES, CIRRHOSIS DECOMPENSATED, SBP? TECHNIQUE: Right abdominal PARACENTESIS WITH US COMPARISON: CT examination of 05/25/2025 FINDINGS: Initially, the requested paracentesis was deferred, due to elevated INR. Despite and elevated INR of 3.8, the referring physician, the hospitalist Dr. Ovalles insisted that fluid be obtained due to clinical necessity and concern for bacterial peritonitis. Therefore, a paracentesis shows agreed to. Following informed consent (of the patient's family member), and using standard sterile technique, a right abdominal paracentesis was performed under sonographic guidance. 2% lidocaine local anesthesia as followed by placement of a 5 [place] catheter into the ascitic collection. A combined total 1120 mL clear yellow fluid is successfully removed, a portion sent to the laboratory for evaluation. No complication was encountered, and of the patient left the department in good condition without significant complaint. US/Paracentesis with US IMPRESSION: Successful right abdominal paracentesis. Laboratory results pending. Reading Location: [place] [address]
[2025-05-27 13:00] LABS: Prothrombin Time (Protime)PT. 38.2 SECONDS (11.7-14.9)
--- NOTE | 2025-05-27 14:06 | PCM.PN.HOSP ---
Reason for Visit Reason for Visit: Diagnoses Sepsis, unspecified organism (05/25/25) Bandemia (05/25/25) Morbid (severe) obesity due to excess calories (05/25/25) Disorder of urea cycle metabolism, unspecified (05/25/25) Other disorders of bilirubin metabolism (05/25/25) Hypomagnesemia (05/25/25) Acidosis, unspecified (05/25/25) Hypokalemia (05/25/25) Cannabis abuse, uncomplicated (05/25/25) Metabolic encephalopathy (05/25/25) Noninfective gastroenteritis and colitis, unspecified (05/25/25) Unspecified cirrhosis of liver (05/25/25) Hepatic encephalopathy (05/25/25) Other ascites (05/25/25) Severe sepsis without septic shock (05/25/25) Abnormal coagulation profile (05/25/25) Body mass index [BMI] 40.0-44.9, adult (05/25/25) Tobacco use (05/25/25) Patient's noncompliance with other medical treatment and regimen due to unspecified reason (05/25/25) Objective Data Objective Data Vital Signs: Vital Signs Temp Pulse Resp BP Pulse Ox O2 Del Method 97.9 F 100 17 123/95 H 100 Room Air 05/27/25 10:47 05/27/25 10:47 05/27/25 10:47 05/27/25 10:47 05/27/25 10:47 05/27/25 10:47 Oxygen Delivery Method Room Air Weight: 293 lb 3.437 oz Body Mass Index (BMI) 47.3 Intake & Output: Intake and Output for Last 24 Hours 05/25/25 05/26/25 05/27/25 23:59 23:59 23:59 Intake Total 6740 / 6740 2705.96 / 2705.96 918.54 / 918.54 Output Total 750 / 750 550 / 550 350 / 350 Balance 5990 / 5990 2155.96 / 2155.96 568.54 / 568.54 Lab / Micro Data 05/27/25 00:51 05/27/25 00:51 Labs: Laboratory Results - last 24 hr 05/25/25 08:05: Hemoglobin A1c 4.5, Vitamin B12 2893 H, TSH 0.747 05/25/25 11:45: Serum Folate 12.50 05/26/25 08:05: Phosphorus 2.1 L, Magnesium 1.4 L, Triglycerides 90, Cholesterol 66, LDL Cholesterol, Calc 39, VLDL Cholesterol 18, HDL Cholesterol 9 L, Cholesterol/HDL Ratio 7.19 05/26/25 10:00: GGT 22 05/26/25 16:02: Vancomycin Trough 22.8 H 05/27/25 00:51: WBC 12.9 H, RBC 4.06 L, Hgb 12.5, Hct 37.9, MCV 93.3, MCH 30.8, MCHC 33.0, RDW Std Deviation 59.6 H, RDW Coeff of Micki 17.9 H, Plt Count 177, MPV 9.7, Immature Gran % (Auto) 1.400 H, Neut % (Auto) 86.5 H, Lymph % (Auto) 6.7 L, [place] % (Auto) 5.0, Eos % (Auto) 0.2, Baso % (Auto) 0.2, Absolute Neuts (auto) 11.2 H, Absolute Lymphs (auto) 0.87, Nucleated RBC % 0.2, Sodium 140, Potassium 3.6, Chloride 107, Carbon Dioxide 18.6 L, Anion Gap 14, BUN 10, Creatinine 0.57 L, Estim Creat Clear Calc 138.42, Est GFR (MDRD) Non-Af 101, BUN/Creatinine Ratio 17.4, Glucose 156 H, Calcium 8.1, Phosphorus 1.8 L, Magnesium 1.7, Total Bilirubin 5.13 H, AST 107 H, ALT 38 H, Alkaline Phosphatase 78, Total Protein 5.7 L, Albumin 2.6 L, Globulin 3.1, Albumin/Globulin Ratio 0.8 L, Random Vancomycin 15.0 05/27/25 05:38: Ammonia 60.1 H 05/27/25 12:37: PT 38.2 H, INR 3.8 Micro: Microbiology 05/25/25 12:08 Blood Culture (Wb) - Venous Bacteria Detection (PCR) - Final Staphylococcus aureus 05/25/25 12:08 Blood Culture (Wb) - Venous Blood Culture - Preliminary 05/26/25 17:51 Nasal Secretion MRSA (PCR) - Final 05/25/25 22:15 Mucosa - Nasopharyngeal Respiratory Panel (PCR) - Final Physical Exam Narrative Patient is confused, conversant, talking incoherent that does not make sense most of the time. Disoriented to time and place., She states she does not know whether she has cirrhosis Physical exam General: Awake, confused, disoriented time place and person HEENT: Atraumatic, PERRLA, EOMI, Normocephalic. Oral: No Gingival or Mucosal Lesions/ Ulcerations Neck: Supple, No JVD, Negative Carotid Bruits Chest wall/Lungs: Air entry diminished in bilateral lung bases. No crepitation/rhonchi Cardiovascular: Regular rate and rhythm, Normal S1,S2, No M/G/R Abdomen: Bowel Sounds Present, Soft, distended, moderate ascites but also fatty abdomen. Nonspecific diffuse tenderness : No dysuria. No renal angle tenderness. No suprapubic tenderness. Extremities: bilateral 2+ thigh edema improving, Capillary Refill Less than 3 Seconds Skin: No rashes, No breakdown Musculoskeletal: No Tenderness to Palpation of Joints or Extremities. ROM restricted Neurological: Detailed neuroexam unobtainable. No obvious long tracts focal lateralizing sign Psych/Mental Status: Flat affect Assessment & Plan Assessment/Plan (1) Sepsis: QUALIFIERS: Sepsis type: sepsis due to unspecified organism Sepsis acute organ dysfunction status: with acute organ dysfunction Severe sepsis acute organ dysfunction type: encephalopathy Severe sepsis shock status: without septic shock Qualified Code(s): A41.9 - Sepsis, unspecified organism; R65.20 - Severe sepsis without septic shock; G93.41 - Metabolic encephalopathy (2) Leukocytosis: QUALIFIERS: Leukocytosis type: bandemia Qualified Code(s): D72.825 - Bandemia (3) Lactic acidosis: (4) Colitis: (5) Cirrhosis of liver with ascites: QUALIFIERS: Hepatic cirrhosis type: unspecified hepatic cirrhosis Qualified Code(s): K74.60 - Unspecified cirrhosis of liver; R18.8 - Other ascites (6) Hyperbilirubinemia: (7) Hyperammonemia: (8) Hepatic encephalopathy: (9) Medical non-compliance: (10) Elevated INR: (11) Hypokalemia: (12) Hypomagnesemia: (13) Cannabis abuse: (14) Morbid obesity with BMI of 40.0-44.9, adult: (15) Tobacco abuse: PLAN: Plan 65-year-old female was brought to ED by EMS for altered mental status, worsening confusion for last few months more for last couple days. She was found on the floor for last 8 hours in her bathroom. Glucose by EMS was 159. 1. Concern of sepsis exact etiology unclear but possible colitis: Patient is being admitted in ICU with concern of sepsis leukocytosis 20 2.K, left shift 1.3%, lactic acidosis 8.9. CT abdomen/pelvis shows cirrhosis with moderate volume ascites and colonic wall thickening may be due to portal hypertension or colitis.Chest x-ray no acute cardiopulmonary process. Temperature 97.6 ?F, tachycardic, tachypneic but no hypoxia. ABG 7.4 08/22/72. Hypokalemia K2.8. Creatinine 0.8. AG 21. Bicarb 20. Lactic acidosis 8.9. CPK 168 normal. Repeat lactic acid 5.5, serum magnesium 2.9 and magnesium 1.3. INR very high 3.6. PTT 36.7. UA positive of nitrite, WBC 0-5, RBC 0-5 bacteria 1+ proteinuria therefore not very specific for UTI. Patient's heart self-centered she does not have burning pain but she is confused therefore history not reliable. Patient started on empiric IV vancomycin and Zosyn. Patient has been [facility] in [facility] but admitted as a bed not available. I talked to the [facility] transfer in afternoon and they do not have bed. Patient is unable to priority and transfer his discharge dependent. 05/27: Patient had nonspecific tenderness therefore possibility of SBP. Diagnostic ultrasound-guided paracentesis ordered. Leukocytosis improving. Immature monocyte 1.4%, predominantly neutrophil 86.5%. Prelim blood culture shows Staph aureus therefore continue Vanco and Zosyn. Overall outpatient improving and therefore level of care changed to PCU. Still currently does not have bed. 2. Cirrhosis decompensated with portal hypertension, ascites, hyperbilirubinemia 5.99, Hepatic encephalopathy and coagulopathy. AST 71, ALT 26, alkaline phosphatase 92 normal. No previous labs available to compare. Hold for serum potassium more than 5.0 albumin 2.8. Thrombocytosis, platelet 448, was 620 in June 2015. INR 3.6. Does not seem to be on anticoagulant.Serum alcohol negative. U tox was positive of cannabis Patient has ascites and bilateral lower extremity swelling and lactic acid may be elevated because of decreased effective plasma volume. Furosemide spironolactone, lactulose and Xifaxan and carvedilol ordered. 05/27: Ascites and leg swelling looks better. INR 3.8. Creatinine 0.57. AST 107, ALT 38, hypoalbuminemia. Gradual increase in AST and ALT. Patient had vitamin K but vitamin K repeated in order to get paracentesis. Above medications to continue. 4. Hypokalemia of 2.8 mmol/L and Hypomagnesemia of 1.3 mg/dL both present on admission: Potassium and magnesium replaced. Recheck the serum level give magnesium sulfate 2g IV once and then recheck level to confirm repletion. 05/26: Repeat potassium is 3.6. Patient started on spironolactone. 05/27: Serum potassium 3.6, magnesium 1.7, low normal; phosphorus 1.8, hypophosphatemia. IV magnesium sulfate and Neutra-Phos ordered. Patient also on spironolactone 50 mg daily 5. Morbid (class III) obesity; with BMI of 44.9 this admission - Weight loss will be recommended. TSH pending Chronic Tobacco Abuse - Tobacco Cessation will be strongly encouraged once sensorium clears. Please nicotine patch to control cravings. 8. Essential hypertension; on amlodipine, losartan, metoprolol and chlorothiazide -started on carvedilol as this is effective in portal hypertension. Neuropathy; on gabapentin 3 times daily - Restart gabapentin when she can reliably tolerate oral intake. 10. Depression; on venlafaxine - Hold this agent until sensorium clears. 11. GERD; on omeprazole - Maintain PPI IV. 12. OA; on meloxicam, tizanidine nightly plus as needed hydrocodone-acetaminophen every 4 hours as needed - 13. DVT prophylaxis - SCD's only with patient already auto-anticoagulated with elevated INR of 3.6. Bilateral AC I called To her DAUGHTER, Kizzy and left a message to call back. I wanted to ask about her CODE STATUS. Charges/Coding Visit Charges Inpatient E&M: 37213 Subs Hosp L3
--- NOTE | 2025-05-27 14:10 | FLU_PTH ---
PATIENT: YANET CASANOVA LOC: [facility] U#:[id number] AGE/SX: 65/F ROOM: [facility] RE05/25/[address]: Dr. Iglesia Ovalles MD : 1960 BED: 1 DIS: 05/29/2025 SPEC #: [id number] RECD: 05/27/25 14:42 STATUS: JAMAL REQ #: [id number] KHADIJAH: 05/27/25 14:[address]: Iglesia Ovalles DEPT: CYTOLOGY RECD BY: Vince Menchaca ENTERED: 05/31/25 10:31 SP TYPE: Fluid OTHR DR: Dr. Klever Feliciano, DO Tissues: A - PARACENTESIS FLUID Procedures: Special Stain Group II Surgery Specimen Level IV Cytospin Fluid HEADER OPERATION: Ultrasound guided paracentesis PRE-OP DIAGNOSIS: Ascites TISSUE SUBMITTED: A- Paracentesis fluid for cytology DIAGNOSIS CYTOLOGY Low cellularity specimen with reactive mesothelial cells and lymphocytes. CYTOLOGY STUDY Slides are reviewed. CYTOLOGY GROSS A. Received is 110 ml of yellow-cloudy fluid labeled with the patient's name and and designated per the requisition as Paracentesis fluid. Submitted for cytology and cell block preparation. 05/31/2025 CPT: 81228
[2025-05-27] MEDS: Lidocaine 2% (20 ml mdv) 20 ML Vial INFILT (14:14)
[2025-05-27 14:46] LABS: Cytology, Body Fluid / CSF SEE PATHOLOGY REPORT
[2025-05-27] MEDS: Na Biphos/Potassium Phosphate PACKET 1 PACKET PO ×2 (15:07→22:33)
[2025-05-27 16:48] LABS: Glucose, Body Fluid 174 mg/dL (Not Establ.)
[2025-05-27 16:49] LABS: Body Fluid Mononuclear WBC # 0.038 10^3/uL; Body Fluid Mononuclear WBC % 56.7 %; Body Fluid Polynuclear WBC # 0.029 10^3/uL; Body Fluid Polynuclear WBC % 43.3 %; White Blood Count/Body Fluid 0.067 10^3/uL
[2025-05-27 17:02] LABS: Auto B Fluid Analyzer BKGD Ct COUNTS W/IN LIMITS (W/IN LIMITS)
[2025-05-27 17:03] LABS: Appearance/Body Fluid CLEAR; Color/Body Fluid LT YEL; Source- Body Fluid PERITONEAL FLUID
[2025-05-27] MEDS: Magnesium Sulfate 2 GM in Dextrose 5%-Water (100mL Bag) 100 ML IV (17:32)
[2025-05-27 20:36] LABS: Red Cell Count/Body Fluid 224 /mm3
[2025-05-27 21:38] LABS: Neutrophil (Segs) 39 %
[2025-05-27 21:40] LABS: Plasma Cell/BodyFluid 0 %
[2025-05-27 21:43] LABS: Body Fluid QC Type(s) BF2Q
[2025-05-27 22:19] LABS: Other Cell Type/BF 0 %
[2025-05-28] MEDS: Vancomycin HCl 1,500 MG in 0.9% Normal Saline (500mL Bag) 500 ML 250 MG IV (02:40)
[2025-05-28 03:00] VITALS: BP 101/60; PULSE 82; RESP 20; TEMP 36.6; O2SAT 98
[2025-05-28 04:31] LABS: Hematocrit 35.5 % (37-47); Hemoglobin 12.1 g/dL (12.0-15.0); Immature Granulocytes Count 0.100 X10^3/uL (0.0-0.0); Mean Corp Hgb Conc 34.1 g/dL (32-36); Mean Corpuscular Volume 91.3 fL (81-99); Mean Platelet Vol. 10.1 fl (6.2-12.0); NRBC Flagged by Analyzer 0.1 % (0-5); Platelet Count 177 K/mm3 (150-450); RBC Distribution Width CV 17.4 % (11.6-14.6); RBC Distribution Width SD 57.5 fl (35.1-43.9); Red Blood Count 3.89 M/mm3 (4.2-5.4); White Blood Count 13.6 K/mm3 (4.4-11.0)
[2025-05-28 04:54] LABS: AST(SGOT) 97 U/L (<=31); Alanine Aminotransfer ALT/SGPT 40 U/L (<=34); Albumin, Serum 2.2 g/dL (3.4-4.8); Alkaline Phosphatase 82 U/L (35-104); Anion Gap 11 (5-15); BUN 14 mg/dL (4-19); BUN/Creat Ratio 20.9 RATIO (10-20); Bilirubin, Direct 2.11 mg/dL (0.00-0.30); Calcium,Total 7.9 mg/dL (7.6-11.0); Carbon Dioxide 18.2 mmol/L (21.0-32.0); Chloride 107 mmol/L (98-108); Estimated Creatinine Clearance 122.55 ml/min (50-250); Globulin 2.9 g/dL (2.2-4.2); Glucose 137 mg/dL (70-99); Potassium 3.4 mmol/L (3.3-5.1)
[2025-05-28 05:44] VITALS: BMI 48.0
[2025-05-28] MEDS: Piperacil/Tazobactam 3.375 GM in 0.9% Normal Saline (50mL MB+) 50 ML IV (05:54)
[2025-05-28] MEDS: Na Biphos/Potassium Phosphate PACKET 1 PACKET PO (06:18)
[2025-05-28 09:00] VITALS: BP 92/53; PULSE 81; RESP 18; TEMP 36.4; O2SAT 95
[2025-05-28] MEDS: Pantoprazole Sodium 40 MG in 0.9% Normal Saline (100mL MB+) 100 ML 330 MG IV (10:12)
[2025-05-28] MEDS: Albumin Human 25% (100 mL) 25 GM/100 ML BAG IV ×4 (10:12→18:05)
--- NOTE | 2025-05-28 12:20 | PN.HOSP_ITS ---
Reason for Visit Reason for Visit: Diagnoses Sepsis, unspecified organism (05/25/25) Bandemia (05/25/25) Morbid (severe) obesity due to excess calories (05/25/25) Disorder of urea cycle metabolism, unspecified (05/25/25) Other disorders of bilirubin metabolism (05/25/25) Hypomagnesemia (05/25/25) Acidosis, unspecified (05/25/25) Hypokalemia (05/25/25) Cannabis abuse, uncomplicated (05/25/25) Metabolic encephalopathy (05/25/25) Noninfective gastroenteritis and colitis, unspecified (05/25/25) Unspecified cirrhosis of liver (05/25/25) Hepatic encephalopathy (05/25/25) Other ascites (05/25/25) Severe sepsis without septic shock (05/25/25) Abnormal coagulation profile (05/25/25) Body mass index [BMI] 40.0-44.9, adult (05/25/25) Tobacco use (05/25/25) Patient's noncompliance with other medical treatment and regimen due to unspecified reason (05/25/25) Objective Data Objective Data Vital Signs: Vital Signs Temp Pulse Resp BP Pulse Ox O2 Del Method 97.6 F L 81 18 92/53 L 95 Room Air 05/28/25 09:00 05/28/25 09:00 05/28/25 09:00 05/28/25 09:00 05/28/25 09:00 05/28/25 09:39 Oxygen Delivery Method Room Air Weight: 297 lb 9.985 oz Body Mass Index (BMI) 48.0 Intake & Output: Intake and Output for Last 24 Hours 05/26/25 05/27/25 05/28/25 23:59 23:59 23:59 Intake Total 2705.96 / 2705.96 2762.54 / 2862.54 870 / 870 Output Total 550 / 550 2320 / 2560 390 / 390 Balance 2155.96 / 2155.96 442.54 / 302.54 480 / 480 Lab / Micro Data 05/28/25 03:39 05/28/25 03:39 Labs: Laboratory Results - last 24 hr 05/27/25 12:37: PT 38.2 H, INR 3.8 05/27/25 14:10: Fluid Source PERITONEAL FLUID, Fluid Color LT YEL, Fluid Appearance CLEAR, Fluid WBC 0.067, Fluid RBC 224, Fluid Tot Cell Count 0.081 H, Fld Polynuclear WBCs # 0.029, Fld Polynuclear WBCs % 43.3, Fluid Mononuclear WBCs 0.038, Fld Mononuclear WBCs % 56.7, Fluid Neutrophils 39, Fluid Lymphocytes 22, Fluid Monocytes 13, Fluid Plasma Cells 0, Fluid Macrophages 12, Fld Mesothelial Cells 14, Fluid Other Cells 0, Fl Pathologist Comment May follow, Fluid Glucose 174, Fluid Total Protein 0.5, Fluid Comment 2 SEE COMMENT 05/28/25 03:39: WBC 13.6 H, RBC 3.89 L, Hgb 12.1, Hct 35.5 L, MCV 91.3, MCH 31.1, MCHC 34.1, RDW Std Deviation 57.5 H, RDW Coeff of Micki 17.4 H, Plt Count 177, MPV 10.1, Immature Gran % (Auto) 0.700, Neut % (Auto) 88.4 H, Lymph % (Auto) 5.0 L, Emmet % (Auto) 5.7, Eos % (Auto) 0.1, Baso % (Auto) 0.1, Absolute Neuts (auto) 12.0 H, Absolute Lymphs (auto) 0.68 L, Nucleated RBC % 0.1, Sodium 136, Potassium 3.4, Chloride 107, Carbon Dioxide 18.2 L, Anion Gap 11, BUN 14, C reatinine 0.65 L, Estim Creat Clear Calc 122.55, Est GFR (MDRD) Non-Af 98, B UN/Creatinine Ratio 20.9 H, Glucose 137 H, Calcium 7.9, Total Bilirubin 4.31 H, Direct Bilirubin 2.11 H, AST 97 H, ALT 40 H, Alkaline Phosphatase 82, Total Protein 5.1 L, Albumin 2.2 L, Globulin 2.9 Micro: Microbiology 05/25/25 12:08 Blood Culture (Wb) - Venous Bacteria Detection (PCR) - Final Staphylococcus aureus 05/25/25 12:08 Blood Culture (Wb) - Venous Blood Culture - Preliminary Staphylococcus aureus Staphylococcus haemolyticus 05/27/25 14:10 Fluid - Ascites Body Fluid Culture - Preliminary No growth-Final to follow 05/25/25 11:45 Blood Culture (Wb) - Arm Right Blood Culture - Preliminary No growth in 48 hours. 05/26/25 17:51 Nasal Secretion MRSA (PCR) - Final 05/25/25 22:15 Mucosa - Nasopharyngeal Respiratory Panel (PCR) - Final Radiography Diagnostic Testing: Radiology Impression Paracentesis Ultrasound 05/27/25 10:56 IMPRESSION: Successful right abdominal paracentesis. Laboratory results pending. Reading Location: [place] [id number] Physical Exam Narrative Seen and examined in the presence of RN. Patient is still confused, conversant, talking incoherent that does not make sense most of the time. Disoriented to time and person. She states she does not know whether she has cirrhosis Physical exam General: Awake, confused, disoriented time and person HEENT: Atraumatic, PERRLA, EOMI, Normocephalic. Oral: No Gingival or Mucosal Lesions/ Ulcerations Neck: Supple, No JVD, Negative Carotid Bruits Chest wall/Lungs: Air entry diminished in bilateral lung bases. No crepitation/rhonchi Cardiovascular: Regular rate and rhythm, Normal S1,S2, No M/G/R Abdomen: Bowel Sounds Present, Soft, distended, moderate ascites but also fatty abdomen. Nonspecific diffuse tenderness : No dysuria. No renal angle tenderness. No suprapubic tenderness. Extremities: bilateral 2+ knee edema improving, Capillary Refill Less than 3 Seconds Skin: No rashes, No breakdown Musculoskeletal: No Tenderness to Palpation of Joints or Extremities. ROM restricted Neurological: Detailed neuroexam unobtainable. No obvious long tracts focal lateralizing sign Psych/Mental Status: Flat affect Assessment & Plan Assessment/Plan (1) Sepsis: QUALIFIERS: Sepsis type: sepsis due to unspecified organism S epsis acute organ dysfunction status: with acute organ dysfunction Severe sepsis acute organ dysfunction type: encephalopathy Severe sepsis shock status: without septic shock Qualified Code(s): A41.9 - Sepsis, unspecified organism; R65.20 - Severe sepsis without septic shock; G93.41 - Metabolic encephalopathy (2) Leukocytosis: QUALIFIERS: Leukocytosis type: bandemia Qualified Code(s): D 72.825 - Bandemia (3) Lactic acidosis: (4) Colitis: (5) Cirrhosis of liver with ascites: QUALIFIERS: Hepatic cirrhosis type: unspecified hepatic cirrhosis Qualified Code(s): K74.60 - Unspecified cirrhosis of liver; R18.8 - Other ascites (6) Hyperbilirubinemia: (7) Hyperammonemia: (8) Hepatic encephalopathy: (9) Medical non-compliance: (10) Elevated INR: (11) Hypokalemia: (12) Hypomagnesemia: (13) Cannabis abuse: (14) Morbid obesity with BMI of 40.0-44.9, adult: (15) Tobacco abuse: PLAN: Plan 65-year-old female was brought to ED by EMS for altered mental status, worsening confusion for last few months more for last couple days. She was found on the floor for last 8 hours in her bathroom. Glucose by EMS was 159. 1. Concern of sepsis exact etiology unclear but possible colitis: Patient is being admitted in ICU with concern of sepsis leukocytosis 20 2.K, left shift 1.3%, lactic acidosis 8.9. CT abdomen/pelvis shows cirrhosis with moderate volume ascites and colonic wall thickening may be due to portal hypertension or colitis.Chest x-ray no acute cardiopulmonary process. Temperature 97.6 ?F, tachycardic, tachypneic but no hypoxia. ABG 7.4 08/22/72. Hypokalemia K2.8. Creatinine 0.8. AG 21. Bicarb 20. Lactic acidosis 8.9. CPK 168 normal. Repeat lactic acid 5.5, serum magnesium 2.9 and magnesium 1.3. INR very high 3.6. PTT 36.7. UA positive of nitrite, WBC 0-5, RBC 0-5 bacteria 1+ proteinuria therefore not very specific for UTI. Patient's heart self-centered she does not have burning pain but she is confused therefore history not reliable. Patient started on empiric IV vancomycin and Zosyn. Patient has been accepted in [facility] but admitted as a bed not available. I talked to the [facility] transfer in afternoon and they do not have bed. Patient is unable to priority and transfer his discharge dependent. 05/27: Patient had nonspecific tenderness therefore possibility of SBP. Diagnostic ultrasound-guided paracentesis ordered. Leukocytosis improving. Immature monocyte 1.4%, predominantly neutrophil 86.5%. Prelim blood culture shows Staph aureus therefore continue Vanco and Zosyn. Overall outpatient improving and therefore level of care changed to PCU. Still currently does not have bed. 05/28: Blood culture shows MSSA therefore antibiotic vancomycin and Unasyn narrowed down to IV ceftriaxone. 2. Cirrhosis decompensated with portal hypertension, ascites, hyperbilirubinemia 5.99, Hepatic encephalopathy and coagulopathy. AST 71, ALT 26, alkaline phosphatase 92 normal. No previous labs available to compare. Hold for serum potassium more than 5.0 albumin 2.8. Thrombocytosis, platelet 448, was 620 in June 2015. INR 3.6. Does not seem to be on anticoagulant.Serum alcohol negative. U tox was positive of cannabis Patient has ascites and bilateral lower extremity swelling and lactic acid may be elevated because of decreased effective plasma volume. Furosemide spironolactone, lactulose and Xifaxan and carvedilol ordered. 05/27: Ascites and leg swelling looks better. INR 3.8. Creatinine 0.57. AST 107, ALT 38, hypoalbuminemia. Gradual increase in AST and ALT. Patient had vitamin K but vitamin K repeated in order to get paracentesis. Above medications to continue. 05/28: Patient had 1120 mL clear fluid yellow straw-colored drained. IV albumin total 1 g, 50 g IV Q8 hourly, total 2 bags ordered. Patient has small bowel movement on yesterday. Lactulose increased to Q6 hourly. Discussed with the nursing staff. Continue furosemide and spironolactone above medications. Patient still does not have bed. INR 3.8. MELD sodium score 28 from MELD score labs of 05/27/2025. It was 28 on 06-18 with INR 4.1. Estimated 90-day mortality 27 to 32%. Patient still pending. For transfer to [facility]. 4. Hypokalemia of 2.8 mmol/L and Hypomagnesemia of 1.3 mg/dL both present on admission: Potassium and magnesium replaced. Recheck the serum level give magnesium sulfate 2g IV once and then recheck level to confirm repletion. 05/26: Repeat potassium is 3.6. Patient started on spironolactone. 05/27: Serum potassium 3.6, magnesium 1.7, low normal; phosphorus 1.8, hypophosphatemia. IV magnesium sulfate and Neutra-Phos ordered. Patient also on spironolactone 50 mg daily 05/29: K3.6 on spironolactone and Neutra-Phos. Repeat magnesium and phosphorus ordered for tomorrow a.m. 5. Morbid (class III) obesity; with BMI of 44.9 this admission - Weight loss will be recommended. TSH pending Chronic Tobacco Abuse - Tobacco Cessation will be strongly encouraged once sensorium clears. Please nicotine patch to control cravings. 8. Essential hypertension; on amlodipine, losartan, metoprolol and chlorothiazide -started on carvedilol as this is effective in portal hypertension. Neuropathy; on gabapentin 3 times daily - Restart gabapentin when she can reliably tolerate oral intake. 10. Depression; on venlafaxine - Hold this agent until sensorium clears. 11. GERD; on omeprazole - Maintain PPI IV. 12. OA; on meloxicam, tizanidine nightly plus as needed hydrocodone- acetaminophen every 4 hours as needed - 13. DVT prophylaxis - SCD's only with patient already auto-anticoagulated with elevated INR of 3.6. Bilateral AC I called To her DAUGHTER, Kizzy and left a message to call back. I wanted to ask about her CODE STATUS. Microbiology Past 72 Hours 05/25/25 12:08 Blood Culture (Wb) - Venous Bacteria Detection (PCR) - Final Staphylococcus aureus 05/25/25 12:08 Blood Culture (Wb) - Venous Blood Culture - Preliminary Staphylococcus aureus Staphylococcus haemolyticus 05/27/25 14:10 Fluid - Ascites Body Fluid Culture - Preliminary No growth-Final to follow 05/25/25 11:45 Blood Culture (Wb) - Arm Right Blood Culture - Preliminary No growth in 48 hours. 05/26/25 17:51 Nasal Secretion MRSA (PCR) - Final 05/25/25 22:15 Mucosa - Nasopharyngeal Respiratory Panel (PCR) - Final Laboratory Results 05/27/25 12:37: PT 38.2 H, INR 3.8 05/27/25 14:10: Fluid Source PERITONEAL FLUID, Fluid Color LT YEL, Fluid Appearance CLEAR, Fluid WBC 0.067, Fluid RBC 224, Fluid Tot Cell Count 0.081 H, Fld Polynuclear WBCs # 0.029, Fld Polynuclear WBCs % 43.3, Fluid Mononuclear WBCs 0.038, Fld Mononuclear WBCs % 56.7, Fluid Neutrophils 39, Fluid Lymphocytes 22, Fluid Monocytes 13, Fluid Plasma Cells 0, Fluid Macrophages 12, Fld Mesothelial Cells 14, Fluid Other Cells 0, Fl Pathologist Comment May follow, Fluid Glucose 174, Fluid Total Protein 0.5, Fluid Albumin Pending, Fluid Comment 2 SEE COMMENT, Miscellaneous Cytology Pending 05/28/25 03:39: WBC 13.6 H, RBC 3.89 L, Hgb 12.1, Hct 35.5 L, MCV 91.3, MCH 31.1, MCHC 34.1, RDW Std Deviation 57.5 H, RDW Coeff of Micki 17.4 H, Plt Count 177, MPV 10.1, Immature Gran % (Auto) 0.700, Neut % (Auto) 88.4 H, Lymph % (Auto) 5.0 L, Emmet % (Auto) 5.7, Eos % (Auto) 0.1, Baso % (Auto) 0.1, Absolute Neuts (auto) 12.0 H, Absolute Lymphs (auto) 0.68 L, Nucleated RBC % 0.1, Sodium 136, Potassium 3.4, Chloride 107, Carbon Dioxide 18.2 L, Anion Gap 11, BUN 14, C reatinine 0.65 L, Estim Creat Clear Calc 122.55, Est GFR (MDRD) Non-Af 98, B UN/Creatinine Ratio 20.9 H, Glucose 137 H, Calcium 7.9, Total Bilirubin 4.31 H, Direct Bilirubin 2.11 H, AST 97 H, ALT 40 H, Alkaline Phosphatase 82, Total Protein 5.1 L, Albumin 2.2 L, Globulin 2.9 Charges/Coding Addendum Addendum: Total time of the visit including total time spent in counseling or coordination of care, (more than 50% of the total time, spent in obtaining medical information from nurses and other ancillary care providers ,explaining to the patient about labs, imaging, diagnosis and management of active complex medical conditions), decompensated cirrhosis, poor prognosis with high MELD score, review of labs and imaging is 35 minutes. Visit Charges Inpatient E&M: 60931 Subs Hosp L3
[2025-05-28 15:00] VITALS: BP 110/69; PULSE 80; RESP 18; TEMP 37.1; O2SAT 97
[2025-05-28] MEDS: 0.9% Saline Lock 10 ML Syringe IV (20:00)
[2025-05-28] MEDS: Lactated Ringers 1,000 ML 999 ML IV (20:04)
[2025-05-28 20:10] VITALS: BP 121/81; PULSE 83; RESP 17; TEMP 36.5; O2SAT 95
[2025-05-28 23:40] VITALS: BP 112/60; PULSE 91; RESP 18; TEMP 36.7; O2SAT 94
[2025-05-29 02:35] VITALS: BP 131/69; PULSE 89; RESP 17; TEMP 36.8; O2SAT 94
[2025-05-29] MEDS: 0.9% Saline Lock 10 ML Syringe IV ×2 (02:39→09:24)
[2025-05-29] MEDS: Furosemide 20 MG/2 ML VIAL IV (02:39)
[2025-05-29] MEDS: Na Biphos/Potassium Phosphate PACKET 1 PACKET PO (06:22)
[2025-05-29 06:30] VITALS: BP 115/65; PULSE 85; RESP 16; TEMP 37.1; O2SAT 95
[2025-05-29 06:37] LABS: Hematocrit 32.0 % (37-47); Hemoglobin 10.8 g/dL (12.0-15.0); Immature Granulocytes Count 0.080 X10^3/uL (0.0-0.0); Mean Corp Hgb Conc 33.8 g/dL (32-36); Mean Corpuscular Volume 92.0 fL (81-99); Mean Platelet Vol. 9.8 fl (6.2-12.0); NRBC Flagged by Analyzer 0.2 % (0-5); POSITIVE DIFFERENTIAL YES; Platelet Count 156 K/mm3 (150-450); RBC Distribution Width CV 17.3 % (11.6-14.6); RBC Distribution Width SD 57.4 fl (35.1-43.9); Red Blood Count 3.48 M/mm3 (4.2-5.4); White Blood Count 11.2 K/mm3 (4.4-11.0)
[2025-05-29 07:04] LABS: Magnesium 2.0 mg/dL (1.5-2.2)
--- NOTE | 2025-05-29 07:08 | PCM.PN.HOSP ---
Reason for Visit Reason for Visit: Diagnoses Sepsis, unspecified organism (05/25/25) Bandemia (05/25/25) Morbid (severe) obesity due to excess calories (05/25/25) Disorder of urea cycle metabolism, unspecified (05/25/25) Other disorders of bilirubin metabolism (05/25/25) Hypomagnesemia (05/25/25) Acidosis, unspecified (05/25/25) Hypokalemia (05/25/25) Cannabis abuse, uncomplicated (05/25/25) Metabolic encephalopathy (05/25/25) Noninfective gastroenteritis and colitis, unspecified (05/25/25) Unspecified cirrhosis of liver (05/25/25) Hepatic encephalopathy (05/25/25) Other ascites (05/25/25) Severe sepsis without septic shock (05/25/25) Abnormal coagulation profile (05/25/25) Body mass index [BMI] 40.0-44.9, adult (05/25/25) Tobacco use (05/25/25) Patient's noncompliance with other medical treatment and regimen due to unspecified reason (05/25/25) Objective Data Objective Data Vital Signs: Vital Signs Temp Pulse Resp BP Pulse Ox O2 Del Method 98.8 F 85 16 115/65 95 Room Air 05/29/25 06:30 05/29/25 06:30 05/29/25 06:30 05/29/25 06:30 05/29/25 06:30 05/29/25 06:30 Oxygen Delivery Method Room Air Weight: 297 lb 9.985 oz Body Mass Index (BMI) 48.0 Intake & Output: Intake and Output for Last 24 Hours 05/27/25 05/28/25 05/29/25 23:59 23:59 23:59 Intake Total 2762.54 / 2862.54 2268 / 2268 240 / 240 Output Total 2320 / 2560 740 / 740 350 / 350 Balance 442.54 / 302.54 1528 / 1528 -110 / -110 Lab / Micro Data 05/29/25 06:22 05/28/25 03:39 Labs: Laboratory Results - last 24 hr 05/29/25 06:22: WBC 11.2 H, RBC 3.48 L, Hgb 10.8 L, Hct 32.0 L, MCV 92.0, MCH 31.0, MCHC 33.8, RDW Std Deviation 57.4 H, RDW Coeff of Micki 17.3 H, Plt Count 156, MPV 9.8, Immature Gran % (Auto) 0.700, Neut % (Auto) 89.3 H, Lymph % (Auto) 4.9 L, Gilmer % (Auto) 4.9, Eos % (Auto) 0.0, Baso % (Auto) 0.2, Absolute Neuts (auto) 10.0 H, Absolute Lymphs (auto) 0.55 L, Nucleated RBC % 0.2, Magnesium 2.0 Micro: Microbiology 05/27/25 14:10 Fluid - Ascites Gram Stain - Final 05/27/25 14:10 Fluid - Ascites Body Fluid Culture - Preliminary No growth-Final to follow 05/25/25 12:08 Blood Culture (Wb) - Venous Bacteria Detection (PCR) - Final Staphylococcus aureus 05/25/25 12:08 Blood Culture (Wb) - Venous Blood Culture - Preliminary Staphylococcus aureus Staphylococcus haemolyticus 05/25/25 11:45 Blood Culture (Wb) - Arm Right Blood Culture - Preliminary No growth in 48 hours. 05/26/25 17:51 Nasal Secretion MRSA (PCR) - Final 05/25/25 22:15 Mucosa - Nasopharyngeal Respiratory Panel (PCR) - Final Physical Exam Narrative Seen and examined in the presence of RN. Patient is still confused, conversant, talking incoherent that does not make sense most of the time. Disoriented to time and person. She states she does not know whether she has cirrhosis Physical exam General: Awake, confused, disoriented time and person HEENT: Atraumatic, PERRLA, EOMI, Normocephalic. Oral: No Gingival or Mucosal Lesions/ Ulcerations Neck: Supple, No JVD, Negative Carotid Bruits Chest wall/Lungs: Air entry diminished in bilateral lung bases. No crepitation/rhonchi Cardiovascular: Regular rate and rhythm, Normal S1,S2, No M/G/R Abdomen: Bowel Sounds Present, Soft, distended, moderate ascites but also fatty abdomen. Nonspecific diffuse tenderness : No dysuria. No renal angle tenderness. No suprapubic tenderness. Extremities: bilateral 2+ knee edema improving, Capillary Refill Less than 3 Seconds Skin: No rashes, No breakdown Musculoskeletal: No Tenderness to Palpation of Joints or Extremities. ROM restricted Neurological: Detailed neuroexam unobtainable. No obvious long tracts focal lateralizing sign Psych/Mental Status: Flat affect Assessment & Plan Assessment/Plan (1) Sepsis: QUALIFIERS: Sepsis type: sepsis due to unspecified organism Sepsis acute organ dysfunction status: with acute organ dysfunction Severe sepsis acute organ dysfunction type: encephalopathy Severe sepsis shock status: without septic shock Qualified Code(s): A41.9 - Sepsis, unspecified organism; R65.20 - Severe sepsis without septic shock; G93.41 - Metabolic encephalopathy (2) Leukocytosis: QUALIFIERS: Leukocytosis type: bandemia Qualified Code(s): D72.825 - Bandemia (3) Lactic acidosis: (4) Colitis: (5) Cirrhosis of liver with ascites: QUALIFIERS: Hepatic cirrhosis type: unspecified hepatic cirrhosis Qualified Code(s): K74.60 - Unspecified cirrhosis of liver; R18.8 - Other ascites (6) Hyperbilirubinemia: (7) Hyperammonemia: (8) Hepatic encephalopathy: (9) Medical non-compliance: (10) Elevated INR: (11) Hypokalemia: (12) Hypomagnesemia: (13) Cannabis abuse: (14) Morbid obesity with BMI of 40.0-44.9, adult: (15) Tobacco abuse: PLAN: Plan 65-year-old female was brought to ED by EMS for altered mental status, worsening confusion for last few months more for last couple days. She was found on the floor for last 8 hours in her bathroom. Glucose by EMS was 159. 1. Concern of sepsis exact etiology unclear but possible colitis: Patient is being admitted in ICU with concern of sepsis leukocytosis 20 2.K, left shift 1.3%, lactic acidosis 8.9. CT abdomen/pelvis shows cirrhosis with moderate volume ascites and colonic wall thickening may be due to portal hypertension or colitis.Chest x-ray no acute cardiopulmonary process. Temperature 97.6 ?F, tachycardic, tachypneic but no hypoxia. ABG 7.4 08/22/. Hypokalemia K2.8. Creatinine 0.8. AG 21. Bicarb 20. Lactic acidosis 8.9. CPK 168 normal. Repeat lactic acid 5.5, serum magnesium 2.9 and magnesium 1.3. INR very high 3.6. PTT 36.7. UA positive of nitrite, WBC 0-5, RBC 0-5 bacteria 1+ proteinuria therefore not very specific for UTI. Patient's heart self-centered she does not have burning pain but she is confused therefore history not reliable. Patient started on empiric IV vancomycin and Zosyn. Patient has been accepted in [facility] but admitted as a bed not available. I talked to the [facility] transfer in afternoon and they do not have bed. Patient is unable to priority and transfer his discharge dependent. 05/27: Patient had nonspecific tenderness therefore possibility of SBP. Diagnostic ultrasound-guided paracentesis ordered. Leukocytosis improving. Immature monocyte 1.4%, predominantly neutrophil 86.5%. Prelim blood culture shows Staph aureus therefore continue Vanco and Zosyn. Overall outpatient improving and therefore level of care changed to PCU. Still currently does not have bed. 05/28: Blood culture shows MSSA therefore antibiotic vancomycin and Unasyn narrowed down to IV ceftriaxone. 2. Cirrhosis decompensated with portal hypertension, ascites, hyperbilirubinemia 5.99, Hepatic encephalopathy and coagulopathy. AST 71, ALT 26, alkaline phosphatase 92 normal. No previous labs available to compare. Hold for serum potassium more than 5.0 albumin 2.8. Thrombocytosis, platelet 448, was 620 in June 2015. INR 3.6. Does not seem to be on anticoagulant.Serum alcohol negative. U tox was positive of cannabis Patient has ascites and bilateral lower extremity swelling and lactic acid may be elevated because of decreased effective plasma volume. Furosemide spironolactone, lactulose and Xifaxan and carvedilol ordered. 05/27: Ascites and leg swelling looks better. INR 3.8. Creatinine 0.57. AST 107, ALT 38, hypoalbuminemia. Gradual increase in AST and ALT. Patient had vitamin K but vitamin K repeated in order to get paracentesis. Above medications to continue. 05/28: Patient had 1120 mL clear fluid yellow straw-colored drained. IV albumin total 1 g, 50 g IV Q8 hourly, total 2 bags ordered. Patient has small bowel movement on yesterday. Lactulose increased to Q6 hourly. Discussed with the nursing staff. Continue furosemide and spironolactone above medications. Patient still does not have bed. INR 3.8. MELD sodium score 28 from MELD score labs of 05/27/2025. It was 28 on 06-18 with INR 4.1. Estimated 90-day mortality 27 to 32%. Patient still pending. For transfer to [facility]. 05/29: RN called me that patient has low urine output , 150 mL in whole day by 6 PM despite getting 1 g of IV albumin and 200 mL of fluid. 1 L Ringer lactate bolus given. Nighttime signout was given to monitor urine output. At bedtime patient got Lasix 20 mg IV. Total urine output 740 mL at midnight and 350 mL since morning. 4. Hypokalemia of 2.8 mmol/L and Hypomagnesemia of 1.3 mg/dL both present on admission: Potassium and magnesium replaced. Recheck the serum level give magnesium sulfate 2g IV once and then recheck level to confirm repletion. 05/26: Repeat potassium is 3.6. Patient started on spironolactone. 05/27: Serum potassium 3.6, magnesium 1.7, low normal; phosphorus 1.8, hypophosphatemia. IV magnesium sulfate and Neutra-Phos ordered. Patient also on spironolactone 50 mg daily 05/29: K3.6 on spironolactone and Neutra-Phos. Repeat magnesium and phosphorus ordered for tomorrow a.m. 5. Morbid (class III) obesity; with BMI of 44.9 this admission - Weight loss will be recommended. TSH pending Chronic Tobacco Abuse - Tobacco Cessation will be strongly encouraged once sensorium clears. Please nicotine patch to control cravings. 8. Essential hypertension; on amlodipine, losartan, metoprolol and chlorothiazide -started on carvedilol as this is effective in portal hypertension. Neuropathy; on gabapentin 3 times daily - Restart gabapentin when she can reliably tolerate oral intake. 10. Depression; on venlafaxine - Hold this agent until sensorium clears. 11. GERD; on omeprazole - Maintain PPI IV. 12. OA; on meloxicam, tizanidine nightly plus as needed hydrocodone-acetaminophen every 4 hours as needed - 13. DVT prophylaxis - SCD's only with patient already auto-anticoagulated with elevated INR of 3.6. Bilateral AC I called To her DAUGHTER, Kizzy and left a message to call back. I wanted to ask about her CODE STATUS. Microbiology Past 72 Hours 05/25/25 12:08 Blood Culture (Wb) - Venous Bacteria Detection (PCR) - Final Staphylococcus aureus 05/25/25 12:08 Blood Culture (Wb) - Venous Blood Culture - Preliminary Staphylococcus aureus Staphylococcus haemolyticus 05/27/25 14:10 Fluid - Ascites Body Fluid Culture - Preliminary No growth-Final to follow 05/25/25 11:45 Blood Culture (Wb) - Arm Right Blood Culture - Preliminary No growth in 48 hours. 05/26/25 17:51 Nasal Secretion MRSA (PCR) - Final 05/25/25 22:15 Mucosa - Nasopharyngeal Respiratory Panel (PCR) - Final Laboratory Results 05/27/25 12:37: PT 38.2 H, INR 3.8 05/27/25 14:10: Fluid Source PERITONEAL FLUID, Fluid Color LT YEL, Fluid Appearance CLEAR, Fluid WBC 0.067, Fluid RBC 224, Fluid Tot Cell Count 0.081 H, Fld Polynuclear WBCs # 0.029, Fld Polynuclear WBCs % 43.3, Fluid Mononuclear WBCs 0.038, Fld Mononuclear WBCs % 56.7, Fluid Neutrophils 39, Fluid Lymphocytes 22, Fluid Monocytes 13, Fluid Plasma Cells 0, Fluid Macrophages 12, Fld Mesothelial Cells 14, Fluid Other Cells 0, Fl Pathologist Comment May follow, Fluid Glucose 174, Fluid Total Protein 0.5, Fluid Albumin Pending, Fluid Comment 2 SEE COMMENT, Miscellaneous Cytology Pending 05/28/25 03:39: WBC 13.6 H, RBC 3.89 L, Hgb 12.1, Hct 35.5 L, MCV 91.3, MCH 31.1, MCHC 34.1, RDW Std Deviation 57.5 H, RDW Coeff of Micki 17.4 H, Plt Count 177, MPV 10.1, Immature Gran % (Auto) 0.700, Neut % (Auto) 88.4 H, Lymph % (Auto) 5.0 L, Gilmer % (Auto) 5.7, Eos % (Auto) 0.1, Baso % (Auto) 0.1, Absolute Neuts (auto) 12.0 H, Absolute Lymphs (auto) 0.68 L, Nucleated RBC % 0.1, Sodium 136, Potassium 3.4, Chloride 107, Carbon Dioxide 18.2 L, Anion Gap 11, BUN 14, Creatinine 0.65 L, Estim Creat Clear Calc 122.55, Est GFR (MDRD) Non-Af 98, BUN/Creatinine Ratio 20.9 H, Glucose 137 H, Calcium 7.9, Total Bilirubin 4.31 H, Direct Bilirubin 2.11 H, AST 97 H, ALT 40 H, Alkaline Phosphatase 82, Total Protein 5.1 L, Albumin 2.2 L, Globulin 2.9
[2025-05-29 07:16] LABS: AST(SGOT) 72 U/L (<=31); Alanine Aminotransfer ALT/SGPT 38 U/L (<=34); Albumin, Serum 3.1 g/dL (3.4-4.8); Alkaline Phosphatase 55 U/L (35-104); Anion Gap 14 (5-15); BUN 17 mg/dL (4-19); BUN/Creat Ratio 20.1 RATIO (10-20); Bilirubin, Direct 2.05 mg/dL (0.00-0.30); Calcium,Total 8.6 mg/dL (7.6-11.0); Carbon Dioxide 17.8 mmol/L (21.0-32.0); Chloride 108 mmol/L (98-108); Estimated Creatinine Clearance 94.56 ml/min (50-250); Globulin 2.3 g/dL (2.2-4.2); Glucose 135 mg/dL (70-99); Potassium 3.2 mmol/L (3.3-5.1)
[2025-05-29 07:32] LABS: Ammonia 49.2 umol/L (11-51)
[2025-05-29 09:15] VITALS: BP 129/84; PULSE 84; RESP 18; TEMP 36.6; O2SAT 96
[2025-05-29] MEDS: Potassium Chloride Oral Tablet 20 MEQ 40 MEQ PO (09:22)
[2025-05-29] MEDS: Pantoprazole Sodium 40 MG in 0.9% Normal Saline (100mL MB+) 100 ML 330 MG IV (09:52)
--- NOTE | 2025-05-29 10:45 | NURSING ---
Report called to nurse Aldana for pt to be tx to [facility].
--- NOTE | 2025-05-29 11:34 | PCM.DC.SUM ---
Providers Date of Admission: 05/25/25 Date of Discharge: 05/29/25 Primary Care Physician: JOHANNA TERRY Consultations 05/25/25 21:42 Consult: Component Technician / Pulmonary Medicine Routine Consulting Provider: Intensivists/Pulmonary Med Reason for Consult: Sepsis with lactic acidosis and hepatic encephalopathy. EMERGENT Consult: No Notified: Yes Date Notified: 05/25/25 Time Notified: 01:04 Method of Notification: Text 05/26/25 06:25 Consult: Gastroenterology Routine Consulting Provider: [facility] Reason for Consult: Sepsis with cirrhosis and hepatic encephalopathy w/ possible colitis on CT. EMERGENT Consult: No Notified: Yes Date Notified: 05/26/25 Time Notified: 06:26 Method of Notification: Text Reason For Visit: SEPSIS WITH LEUKOCYTOSIS & LACTIC ACIDOSIS Diagnosis Discharge Diagnosis (1) Sepsis: Status: Acute Code(s): A41.9 - Sepsis, unspecified organism Qualifiers: Sepsis acute organ dysfunction status: with acute organ dysfunction Sepsis type: sepsis due to unspecified organism Severe sepsis acute organ dysfunction type: encephalopathy Severe sepsis shock status: without septic shock Qualified Code(s): A41.9 - Sepsis, unspecified organism; R65.20 - Severe sepsis without septic shock; G93.41 - Metabolic encephalopathy (2) Leukocytosis: Status: Acute Code(s): D72.829 - Elevated white blood cell count, unspecified Qualifiers: Leukocytosis type: bandemia Qualified Code(s): D72.825 - Bandemia (3) Lactic acidosis: Status: Acute Code(s): E87.20 - Acidosis, unspecified (4) Colitis: Status: Acute Code(s): K52.9 - Noninfective gastroenteritis and colitis, unspecified (5) Cirrhosis of liver with ascites: Status: Acute Code(s): K74.60 - Unspecified cirrhosis of liver; R18.8 - Other ascites Qualifiers: Hepatic cirrhosis type: unspecified hepatic cirrhosis Qualified Code(s): K74.60 - Unspecified cirrhosis of liver; R18.8 - Other ascites (6) Hyperbilirubinemia: Status: Acute Code(s): E80.6 - Other disorders of bilirubin metabolism (7) Hyperammonemia: Status: Acute Code(s): E72.20 - Disorder of urea cycle metabolism, unspecified (8) Hepatic encephalopathy: Status: Acute Code(s): K76.82 - Hepatic encephalopathy (9) Medical non-compliance: Status: Acute Code(s): Z91.199 - Patient's noncompliance with other medical treatment and regimen due to unspecified reason (10) Elevated INR: Status: Acute Code(s): R79.1 - Abnormal coagulation profile (11) Hypokalemia: Status: Acute Code(s): E87.6 - Hypokalemia (12) Hypomagnesemia: Status: Acute Code(s): E83.42 - Hypomagnesemia (13) Cannabis abuse: Status: Acute Code(s): F12.10 - Cannabis abuse, uncomplicated (14) Morbid obesity with BMI of 40.0-44.9, adult: Status: Acute Code(s): E66.01 - Morbid (severe) obesity due to excess calories; Z68.41 - Body mass index [BMI] 40.0-44.9, adult (15) Tobacco abuse: Status: Acute Code(s): Z72.0 - Tobacco use Plan 65-year-old female was brought to ED by EMS for altered mental status, worsening confusion for last few months more for last couple days. She was found on the floor for last 8 hours in her bathroom. Glucose by EMS was 159. 1. Concern of sepsis exact etiology unclear but possible colitis: Patient is being admitted in ICU with concern of sepsis leukocytosis 20 2.K, left shift 1.3%, lactic acidosis 8.9. CT abdomen/pelvis shows cirrhosis with moderate volume ascites and colonic wall thickening may be due to portal hypertension or colitis.Chest x-ray no acute cardiopulmonary process. Temperature 97.6 ?F, tachycardic, tachypneic but no hypoxia. ABG 7.4 08/22/72. Hypokalemia K2.8. Creatinine 0.8. AG 21. Bicarb 20. Lactic acidosis 8.9. CPK 168 normal. Repeat lactic acid 5.5, serum magnesium 2.9 and magnesium 1.3. INR very high 3.6. PTT 36.7. UA positive of nitrite, WBC 0-5, RBC 0-5 bacteria 1+ proteinuria therefore not very specific for UTI. Patient's heart self-centered she does not have burning pain but she is confused therefore history not reliable. Patient started on empiric IV vancomycin and Zosyn. Patient has been accepted in [facility] but admitted as a bed not available. I talked to the [facility] transfer in afternoon and they do not have bed. Patient is unable to priority and transfer his discharge dependent. 05/27: Patient had nonspecific tenderness therefore possibility of SBP. Diagnostic ultrasound-guided paracentesis ordered. Leukocytosis improving. Immature monocyte 1.4%, predominantly neutrophil 86.5%. Prelim blood culture shows Staph aureus therefore continue Vanco and Zosyn. Overall outpatient improving and therefore level of care changed to PCU. Still currently does not have bed. 05/28: Blood culture shows MSSA therefore antibiotic vancomycin and Unasyn narrowed down to IV ceftriaxone. 05/29: No fever tachycardia or tachypnea. No fever since 05/25. Continue IV ceftriaxone. Patient will need repeat blood culture and 2D echo in [facility]. Recommended ID consult. 2. Cirrhosis decompensated with portal hypertension, ascites, hyperbilirubinemia 5.99, Hepatic encephalopathy and coagulopathy. AST 71, ALT 26, alkaline phosphatase 92 normal. No previous labs available to compare. Hold for serum potassium more than 5.0 albumin 2.8. Thrombocytosis, platelet 448, was 620 in June 2015. INR 3.6. Does not seem to be on anticoagulant.Serum alcohol negative. U tox was positive of cannabis Patient has ascites and bilateral lower extremity swelling and lactic acid may be elevated because of decreased effective plasma volume. Furosemide spironolactone, lactulose and Xifaxan and carvedilol ordered. 05/27: Ascites and leg swelling looks better. INR 3.8. Creatinine 0.57. AST 107, ALT 38, hypoalbuminemia. Gradual increase in AST and ALT. Patient had vitamin K but vitamin K repeated in order to get paracentesis. Above medications to continue. 05/28: Patient had 1120 mL clear fluid yellow straw-colored drained. IV albumin total 1 g, 50 g IV Q8 hourly, total 2 bags ordered. Patient has small bowel movement on yesterday. Lactulose increased to Q6 hourly. Discussed with the nursing staff. Continue furosemide and spironolactone above medications. Patient still does not have bed. INR 3.8. MELD sodium score 28 from MELD score labs of 05/27/2025. It was 28 on 06-18 with INR 4.1. Estimated 90-day mortality 27 to 32%. Patient still pending. For transfer to [facility]. 05/29: RN called me that patient has low urine output , 150 mL in whole day by 6 PM despite getting 1 g of IV albumin and 200 mL of fluid. 1 L Ringer lactate bolus given. Nighttime signout was given to monitor urine output. At bedtime patient got Lasix 20 mg IV. Total urine output 740 mL at midnight and 350 mL since morning. Oral Lasix changed to 40 mg IV daily and continue spironolactone. Total bilirubin is improving, 4.83, DB 2.05. AST ALT improving. Hypoalbuminemia. Continue intake and output monitoring. 4. Hypokalemia of 2.8 mmol/L and Hypomagnesemia of 1.3 mg/dL both present on admission: Potassium and magnesium replaced. Recheck the serum level give magnesium sulfate 2g IV once and then recheck level to confirm repletion. 05/26: Repeat potassium is 3.6. Patient started on spironolactone. 05/27: Serum potassium 3.6, magnesium 1.7, low normal; phosphorus 1.8, hypophosphatemia. IV magnesium sulfate and Neutra-Phos ordered. Patient also on spironolactone 50 mg daily 05/29: K3.6 on spironolactone and Neutra-Phos. Repeat magnesium and phosphorus ordered for tomorrow a.m. 05/30: K3.2, magnesium 2.0. Serum phosphorus pending. spironolactone dose increased to 100 mg daily from 75 mg daily. Potassium chloride 40 mEq 1 dose given. Monitor electrolytes daily. 5. Morbid (class III) obesity; with BMI of 44.9 this admission - Weight loss will be recommended. TSH pending Chronic Tobacco Abuse - Tobacco Cessation will be strongly encouraged once sensorium clears. Please nicotine patch to control cravings. 8. Essential hypertension; on amlodipine, losartan, metoprolol and chlorothiazide -started on carvedilol as this is effective in portal hypertension. Neuropathy; on gabapentin 3 times daily - Restart gabapentin when she can reliably tolerate oral intake. 10. Depression; on venlafaxine - Hold this agent until sensorium clears. 11. GERD; on omeprazole - Maintain PPI IV. 12. OA; on meloxicam, tizanidine nightly plus as needed hydrocodone-acetaminophen every 4 hours as needed - 13. DVT prophylaxis - SCD's only with patient already auto-anticoagulated with elevated INR of 3.6. Bilateral AC I called To her DAUGHTER, Kizzy and left a message to call back. I wanted to ask about her CODE STATUS. Patient got the bed in [facility] Main clinic. Patient is being transferred to [facility]. Microbiology Past 72 Hours 05/27/25 14:10 Fluid - Ascites Gram Stain - Final 05/27/25 14:10 Fluid - Ascites Body Fluid Culture - Preliminary No growth-Final to follow 05/27/25 14:10 Fluid - Ascites Anaerobic Culture - Preliminary No growth in 48 hours. 05/25/25 12:08 Blood Culture (Wb) - Venous Bacteria Detection (PCR) - Final Staphylococcus aureus 05/25/25 12:08 Blood Culture (Wb) - Venous Blood Culture - Final Staphylococcus aureus Staphylococcus haemolyticus 05/25/25 11:45 Blood Culture (Wb) - Arm Right Blood Culture - Preliminary No growth in 48 hours. 05/26/25 17:51 Nasal Secretion MRSA (PCR) - Final Laboratory Results 05/29/25 06:22: WBC 11.2 H, RBC 3.48 L, Hgb 10.8 L, Hct 32.0 L, MCV 92.0, MCH 31.0, MCHC 33.8, RDW Std Deviation 57.4 H, RDW Coeff of Micki 17.3 H, Plt Count 156, MPV 9.8, Immature Gran % (Auto) 0.700, Neut % (Auto) 89.3 H, Lymph % (Auto) 4.9 L, [place] % (Auto) 4.9, Eos % (Auto) 0.0, Baso % (Auto) 0.2, Absolute Neuts (auto) 10.0 H, Absolute Lymphs (auto) 0.55 L, Nucleated RBC % 0.2, Sodium 139, Potassium 3.2 L, Chloride 108, Carbon Dioxide 17.8 L, Anion Gap 14, BUN 17, Creatinine 0.85, Estim Creat Clear Calc 94.56, Est GFR (MDRD) Non-Af 77, BUN/Creatinine Ratio 20.1 H, Glucose 135 H, Calcium 8.6, Phosphorus Pending, Magnesium 2.0, Total Bilirubin 4.83 H, Direct Bilirubin 2.05 H, AST 72 H, ALT 38 H, Alkaline Phosphatase 55, Ammonia 49.2, Total Protein 5.3 L, Albumin 3.1 L, Globulin 2.3 Microbiology Past 72 Hours Medications at Discharge Home Medications amlodipine 5 mg tablet 5 mg PO DAILY 10/08/20 amlodipine 5 mg tablet 5 mg PO DAILY #30 tabs 10/08/20 gabapentin 100 mg capsule 200 mg PO TID 10/08/20 hydrochlorothiazide 12.5 mg capsule 12.5 mg PO DAILY 10/08/20 hydrochlorothiazide 25 mg tablet 12.5 mg (1/2 x 25 mg) PO DAILY #30 tabs 10/08/20 hydrocodone 7.5 mg-acetaminophen 325 mg tablet 1 tab PO Q4H PRN PRN Pain Score 6-10 10/08/20 losartan 100 mg tablet 100 mg PO DAILY 10/08/20 losartan 100 mg tablet 100 mg PO DAILY #30 tabs 10/08/20 meloxicam 15 mg tablet 15 mg PO DAILY 10/08/20 metoprolol succinate 25 mg tablet,extended release 24 hr 25 mg PO BID 10/08/20 omeprazole 20 mg capsule,delayed release 20 mg PO DAILY 10/08/20 tizanidine 2 mg capsule 2 mg PO QHS 10/08/20 venlafaxine 75 mg capsule,extended release 24 hr 75 mg PO 10/08/20 Physical Exam Narrative Seen and examined in the presence of RN. Patient looks more awake and talking but is still incoherent with disorganized thought. Disoriented to time and person. She states she does not know whether she has cirrhosis Total fluid WBC 67, polynuclear 43 56 and therefore SBP ruled out. Peritoneal fluid culture also did not show any growth for more than 48 hours. Physical exam General: Awake, confused, disoriented time and person HEENT: Atraumatic, PERRLA, EOMI, Normocephalic. Oral: No Gingival or Mucosal Lesions/ Ulcerations Neck: Supple, No JVD, Negative Carotid Bruits Chest wall/Lungs: Air entry diminished in bilateral lung bases. No crepitation/rhonchi Cardiovascular: Regular rate and rhythm, Normal S1,S2, No M/G/R Abdomen: Bowel Sounds Present, Soft, mild distention. Status post paracentesis 1 L. No acute tenderness. : Naik catheter, clear urine output increased. No renal angle tenderness. No suprapubic tenderness. Extremities: bilateral 2+ knee edema improving, Capillary Refill Less than 3 Seconds Skin: No rashes, No breakdown Musculoskeletal: No Tenderness to Palpation of Joints or Extremities. ROM restricted Neurological: Detailed neuroexam unobtainable. No obvious long tracts focal lateralizing sign Psych/Mental Status: Flat affect Weight / BMI Weight Weight: 297 lb 9.985 oz Body Mass Index (BMI) 48.0 ABG / Lab / Microbiology Data 05/29/25 06:22 05/29/25 06:22 Laboratory: Laboratory Results - last 24 hr 05/29/25 06:22: WBC 11.2 H, RBC 3.48 L, Hgb 10.8 L, Hct 32.0 L, MCV 92.0, MCH 31.0, MCHC 33.8, RDW Std Deviation 57.4 H, RDW Coeff of Micki 17.3 H, Plt Count 156, MPV 9.8, Immature Gran % (Auto) 0.700, Neut % (Auto) 89.3 H, Lymph % (Auto) 4.9 L, [place] % (Auto) 4.9, Eos % (Auto) 0.0, Baso % (Auto) 0.2, Absolute Neuts (auto) 10.0 H, Absolute Lymphs (auto) 0.55 L, Nucleated RBC % 0.2, Sodium 139, Potassium 3.2 L, Chloride 108, Carbon Dioxide 17.8 L, Anion Gap 14, BUN 17, Creatinine 0.85, Estim Creat Clear Calc 94.56, Est GFR (MDRD) Non-Af 77, BUN/Creatinine Ratio 20.1 H, Glucose 135 H, Calcium 8.6, Magnesium 2.0, Total Bilirubin 4.83 H, Direct Bilirubin 2.05 H, AST 72 H, ALT 38 H, Alkaline Phosphatase 55, Ammonia 49.2, Total Protein 5.3 L, Albumin 3.1 L, Globulin 2.3 Microbiology: Microbiology 05/27/25 14:10 Fluid - Ascites Gram Stain - Final 05/27/25 14:10 Fluid - Ascites Body Fluid Culture - Preliminary No growth-Final to follow 05/27/25 14:10 Fluid - Ascites Anaerobic Culture - Preliminary No growth in 48 hours. 05/25/25 12:08 Blood Culture (Wb) - Venous Bacteria Detection (PCR) - Final Staphylococcus aureus 05/25/25 12:08 Blood Culture (Wb) - Venous Blood Culture - Final Staphylococcus aureus Staphylococcus haemolyticus 05/25/25 11:45 Blood Culture (Wb) - Arm Right Blood Culture - Preliminary No growth in 48 hours. 05/26/25 17:51 Nasal Secretion MRSA (PCR) - Final 05/25/25 22:15 Mucosa - Nasopharyngeal Respiratory Panel (PCR) - Final D/C Instructions DC O2, CPAP, BIPAP Needs Home O2 Discharge instructions: No Meaningful Use Info Meaningful Use Meaningful Use Diagnoses (Choose all that apply): None applicable Ischemic Stroke Statin Dosing Therapy Reference: STATIN DOSE THERAPY REFERENCE: * Patients > 75 years receive moderate or high dose statin therapy. * Patients 75 years or YOUNGER should receive HIGH intensity statin dose unless contraindicated. You will be required to document reason for non-treatment if statin daily dose does not meet guidelines. HIGH DOSE STATIN THERAPY DAILY Atorvastatin > than or = to 40 mg Rosuvastatin > than or = to 20 mg Amlodipine + Atorvastatin > than or = to 2.5/40 mg Ezetimibe + Simvastatin 10/80 mg Simvastatin 80mg Discharge Plan Admission Admit Date/Time: 05/25/25 19:56 Attending Provider: Iglesia Ovalles Primary Care Provider: JOHANNA ZAMARRIPA Consulting Providers: Klever Feliciano Discharge Orders/Prescriptions Prescriptions: No Action venlafaxine 75 MG capsule,extended release 24hr 75 mg PO meloxicam 15 MG tablet 15 mg PO DAILY amlodipine 5 MG tablet 5 mg PO DAILY hydrocodone-acetaminophen 1 TABLET tablet 1 tab PO Q4H PRN PRN (Reason: Pain Score 6-10) Patient Comments: TAKE 1 TABLET EVERY 4 HOURS NEEDED FOR PAIN hydrochlorothiazide 12.5 MG capsule 12.5 mg PO DAILY omeprazole 20 MG capsule 20 mg PO DAILY gabapentin 100 MG capsule 200 mg PO TID metoprolol succinate 25 MG tablet 25 mg PO BID losartan 100 MG tablet 100 mg PO DAILY tizanidine 2 MG capsule 2 mg PO QHS amlodipine 5 MG tablet 5 mg PO DAILY Qty: 30 0RF hydrochlorothiazide 25 MG tablet 12.5 mg PO DAILY Qty: 30 0RF losartan 100 MG tablet 100 mg PO DAILY Qty: 30 0RF Referrals / Follow Up: JOHANNA ZAMARRIPA [Other] JOHANNA ZAMARRIPA [Other] Charges/Coding Visit Charges Inpatient E&M: 82419 Disch Hosp >30min
[2025-05-31 15:08] LABS: Albumin, Body Fluid 0.3 g/dL (Not Estab.)
[2025-06-03 09:04] LABS: Pathologist Comment/Body Fluid Reviewed
== END 2025-05-29 11:55 | disposition other institution (70) | DRG 871 ==
LOC: ED 19:19 → ICU 20:38 → PCU 05-26 18:16
PROVIDERS: Internal Medicine Critical Care Medicine; Surgery; Admitting Provider Internal Medicine; Emergency Provider Emergency Medicine; Visit Provider Internal Medicine
DX: A41.01 Sepsis due to Methicillin susceptible Staphylococcus aureus (principal); G93.41 Metabolic encephalopathy; E72.20 Disorder of urea cycle metabolism, unspecified; R18.8 Other ascites; Z68.41 Body mass index [BMI] 40.0-44.9, adult; K76.6 Portal hypertension; E83.39 Other disorders of phosphorus metabolism; F12.10 Cannabis abuse, uncomplicated; I10 Essential (primary) hypertension; F32.A Depression, unspecified; R65.20 Severe sepsis without septic shock; K76.82 Hepatic encephalopathy; G62.9 Polyneuropathy, unspecified; E87.6 Hypokalemia; K21.9 Gastro-esophageal reflux disease without esophagitis; F17.200 Nicotine dependence, unspecified, uncomplicated; K74.69 Other cirrhosis of liver; E83.42 Hypomagnesemia; K52.9 Noninfective gastroenteritis and colitis, unspecified; M19.90 Unspecified osteoarthritis, unspecified site; E66.813 Obesity, class 3; Z91.198 Patient's noncompliance with other medical treatment and regimen for other reason; Z79.1 Long term (current) use of non-steroidal anti-inflammatories (NSAID); Z79.899 Other long term (current) drug therapy
CPT/HCPCS: 36415; 36600; 49083; 51702; 70450; 71045; 72170; 74177; 80048; 80053; 80061; 80076; 80202; 80307; 81001; 82042; 82077; 82140; 82248; 82550; 82607; 82746; 82803; 82945; 82977; 83036; 83605; 83735; 84100; 84132; 84157; 84443; 85025; 85610; 85730; 87040; 87070; 87075; 87077; 87149; 87186; 87205; 87633; 87641; 88108; 88305; 88313; 89050; 93005; 97110; 97162; 97166; 97530; 97535; 99285; P9047; Q9967; A4216; J1938